=== PATIENT | female | born 1950 | race Caucasian/White ===

== ENCOUNTER → 2018-06-10 07:22 | Outpatient (CLI) | payer BC, SELFPAY ==
[2018-06-10 08:13] LABS: Add Manual Diff / Slide Review NO; Basophils Absolute Auto 100 /uL (0-100); Basophils Percent Auto 1.2 % (0-2); Eosinophils Absolute Auto 100 /uL (0-450); Eosinophils Percent Auto 1.5 % (2-4); Hematocrit 43.8 % (36-46); Hemoglobin 14.4 g/dL (12.0-16.0); Lymphocytes Absolute Auto 2600 /uL (1100-4500); Lymphocytes Percent Auto 51.6 % (25-40); Mean Corpuscular Hemoglobin 29.3 PG (26-34); Mean Corpuscular Volume 88.7 fL (80-100); Monocytes Absolute Auto 600 /uL (0-900); Monocytes Percent Auto 12.2 % (3-14); Neutrophils Absolute Auto 1700 /uL (1500-7000); Neutrophils Percent Auto 33.5 % (50-75); Platelet Count 235 X10^3/uL (150-400); Red Blood Cell Count 4.93 X10^6/uL (4.0-5.2); Red Cell Distribution Width 13.1 % (11.6-14.8)
[2018-06-10 08:33] LABS: Alanine Aminotransferase 18 IU/L (9-52); Albumin Globulin Ratio 1.5 (1.0-2.8); Alkaline Phosphatase 74 U/L (38-126); Aspartate Aminotransferase 24 IU/L (14-36); BUN Creatinine Ratio 17.5 (6-22); Bilirubin Total 0.5 mg/dL (0.2-1.3); Blood Urea Nitrogen 14 mg/dL (7-17); Calcium 8.9 mg/dL (8.4-10.2); Carbon Dioxide 31 mmol/L (22-32); Chloride 100 mmol/L (98-107); Cholesterol 214 mg/dL (140-199); Estimated Glomerular Filt Rate > 60.0 mL/min (>60); Globulin 2.6 g/dL (1.7-4.1); Glucose 86 mg/dL (80-110); HDL Cholesterol 58 mg/dL (40-60); HEMOLYSIS < 15 (0-50); LDL Cholesterol Calculated 145 mg/dL (<100); Potassium 3.7 mmol/L (3.4-5.1); Sodium 139 mmol/L (137-145); Total Protein 6.6 g/dL (6.3-8.2); Triglycerides 56 mg/dL (35-150)
== END ==
PROVIDERS: Visit Provider Naturopath
DX: Z00.00 Encounter for general adult medical examination without abnormal findings (principal)
CPT/HCPCS: 36415; 80053; 80061; 85025

== ENCOUNTER → 2018-10-12 14:15 | Outpatient (CLI) | payer BC, SELFPAY ==
[2018-10-12 15:12] LABS: Add Manual Diff / Slide Review NO; Basophils Absolute Auto 100 /uL (0-100); Basophils Percent Auto 0.9 % (0-2); Eosinophils Absolute Auto 100 /uL (0-450); Eosinophils Percent Auto 1.2 % (2-4); Hemoglobin 14.2 g/dL (12.0-16.0); Lymphocytes Absolute Auto 2400 /uL (1100-4500); Lymphocytes Percent Auto 36.9 % (25-40); Mean Corpuscular HGB Conc 33.7 % (30-36); Mean Corpuscular Hemoglobin 29.7 PG (26-34); Mean Corpuscular Volume 88.1 fL (80-100); Monocytes Absolute Auto 500 /uL (0-900); Monocytes Percent Auto 8.2 % (3-14); Neutrophils Absolute Auto 3400 /uL (1500-7000); Neutrophils Percent Auto 52.8 % (50-75); Platelet Count 229 X10^3/uL (150-400); Red Blood Cell Count 4.77 X10^6/uL (4.0-5.2); Red Cell Distribution Width 13.3 % (11.6-14.8); White Blood Cell Count 6.5 X10^3/uL (4.5-11.0)
[2018-10-12 15:51] LABS: Free T3, Triiodothyronine Free 3.39 pg/mL (2.77-5.27); Free T4, Direct Thyroxine 1.17 ng/dL (0.78-2.19)
[2018-10-12 16:05] LABS: Thyroid Stimulating Hormone 1.52 uIU/mL (0.47-4.68)
[2018-11-03 12:56] LABS: Thyroid Peroxidase Antibodies < 1
[2018-11-03 12:57] LABS: Anti Thyroglobulin Antibody < 1
== END ==
PROVIDERS: Visit Provider Naturopath
DX: R42 Dizziness and giddiness (principal); L65.9 Nonscarring hair loss, unspecified; D70.9 Neutropenia, unspecified; R53.83 Other fatigue
CPT/HCPCS: 36415; 84439; 84443; 84481; 85025; 86376; 86800

== ENCOUNTER → 2018-12-13 07:51 | Outpatient (CLI) | payer BC, SELFPAY ==
--- NOTE | 2018-12-13 | DI.MG.S_ITS ---
BILATERAL DIGITAL SCREENING MAMMOGRAM 3D/2D WITH CAD: 12/13/2018 CLINICAL: Routine screening. Comparison is made to exams dated: 06/12/2017 mammogram, 01/29/2015 mammogram, and 01/07/2012 mammogram - [facility]. The tissue of both breasts is heterogeneously dense. This may lower the sensitivity of mammography. Current study was also evaluated with a Computer Aided Detection (CAD) system. There is a fine calcification in the right breast at 6 o'clock anterior depth. This is more prominent. No other significant masses, calcifications, or other findings are seen in either breast. IMPRESSION: INCOMPLETE: NEEDS ADDITIONAL IMAGING EVALUATION The fine calcification in the right breast is indeterminate. Lateral magnification, spot magnification, and additional views are recommended. This exam was interpreted at Station ID: [id number]. NOTE: For mammograms, a report in lay terms will be sent to the patient. Approximately 15% of breast malignancies will not be visualized mammographically. In the management of a palpable breast mass, a negative mammogram must not discourage biopsy of a clinically suspicious lesion. Electronically Signed By: Naomi he/araceli:12/13/2018 09:21:13 letter sent: Additional Imaging Needed ACR BI-RADS Category 0: Incomplete 3340F
== END ==
PROVIDERS: PCP Naturopath; Visit Provider Naturopath
DX: Z12.31 Encounter for screening mammogram for malignant neoplasm of breast (principal)
CPT/HCPCS: 77063; 77067

== ENCOUNTER → 2019-01-05 13:33 | Outpatient (CLI) | payer BC, SELFPAY ==
--- NOTE | 2019-01-05 | DI.MG.S_ITS ---
UNILATERAL RIGHT DIGITAL DIAGNOSTIC MAMMOGRAM 3D/2D WITH ADDITIONAL VIEWS: 01/05/2019 CLINICAL: Additional evaluation requested from prior study. Comparison is made to exams dated: 12/13/2018 mammogram, 06/12/2017 mammogram, and 01/29/2015 mammogram - [facility]. The tissue of right breast is heterogeneously dense. This may lower the sensitivity of mammography. There are benign calcifications in the right breast that are not significantly changed. The previously described fine calcification in the right breast at 6 o'clock anterior depth is no longer seen or reproducible despite several attempts. Adjacent benign calcifications are stable. This likely represented pseudocalcifications on comparison mammogram. No other significant masses or calcifications are seen in the breast. IMPRESSION: There is no mammographic evidence of malignancy. A 1 year screening mammogram is recommended. This exam was interpreted at Station ID: [id number]. NOTE: For mammograms, a report in lay terms will be sent to the patient. Approximately 15% of breast malignancies will not be visualized mammographically. In the management of a palpable breast mass, a negative mammogram must not discourage biopsy of a clinically suspicious lesion. Electronically Signed By: Christiano Rodriguez M.D. aty/:01/05/2019 14:28:57 letter sent: Normal Exam ACR BI-RADS Category 2: Benign Finding(s) 3342F
== END ==
PROVIDERS: PCP Physician Assistant; Visit Provider Naturopath
DX: R92.8 Other abnormal and inconclusive findings on diagnostic imaging of breast (principal)
CPT/HCPCS: 77065; G0279

== ENCOUNTER 2019-04-07 12:35 | Day surgery (SDC) | payer MEDICARE, OTHER, BC, SELFPAY ==
[2019-04-07] VITALS (9 sets, daily range): BP systolic 103–129; BP diastolic 56–69; PULSE 51–74; RESP 10–17; TEMP 36.1–36.6; O2SAT 55–100; BMI 22.2
[2019-04-07] MEDS: SODIUM CHLORIDE 0.9% 1,000 ML 200 ML IV (12:58)
--- NOTE | 2019-04-07 13:52 | PM.HP.1 ---
History of Present Illness History of Present Illness Date Patient Seen: 04/07/19 Time Patient Seen: 13:52 Chief complaint: 18626 SCREENING COLONOSCOPY Narrative: Patient presents for colorectal screening. They had a previous colonoscopy which was significant for an adenomatous polyp removed 5 years ago. No personal or family history of colon cancer. On further history denies any recent gastrointestinal symptoms. No nausea, vomiting, abdominal pain, loss of appetite, unexplained weight loss, change in bowel habits, diarrhea, constipation, melena, hematochezia, or bright red blood per rectum. Patient History Medical History Allergies (Chronic) Anxiety (Chronic) Cataracts, bilateral (Chronic ~2016) Chicken pox (Resolved) Depression (Chronic) Endometriosis (Inactive ~1979) Epiretinal membrane (Chronic ~2009) Foot pain (Chronic) Fractures (Resolved) GERD (gastroesophageal reflux disease) (Chronic ~2003) Hemorrhoid (Inactive ~1981) Herpes (Inactive ~1996) Measles (Resolved) Osteopenia (Chronic) Recurrent sinusitis (Chronic) Tendonitis (Chronic) Surgical History Anesthesia (Resolved) Leg fracture, right (Resolved ~2004) Family & Social History Family History Father Hypertension Stroke Mother Stroke Ulcerative colitis Sister Osteoporosis Grandfather History of heart disease Grandfather Aneurysm Social History: household members spouse Tobacco & Substance use: Smoking Status Never smoker alcohol intake current Meds Home Medications and Allergies Home Medications Medication Instructions Recorded Confirmed Type cholecalciferol (vitamin D3) 25 3,000 unit PO DAILY cap 01/03/19 04/07/19 History mcg (1,000 unit) capsule multivitamin 1 cap PO DAILY 01/03/19 04/07/19 History pneumoc 13-sally conj-dip cr(PF) 0.5 0.5 ml IM ONCE #0.5 ml 01/03/19 04/07/19 Rx mL IM syringe Allergies Allergy/AdvReac Type Severity Reaction Status Date / Time tetracycline [TETRACYCLINE] Allergy Intermediate Hives and Unverified 01/03/19 10:02 swelling Review of Systems Review of Systems Narrative: A 10 point review of systems is negative except as noted in the HPI Exam Vital Signs (past 8 hours): - 04/07/19 13:08 Temperature 97.8 F Pulse Rate 74 Respiratory Rate 16 Pulse Oximetry 98 Oxygen Delivery Method Room Air Narrative Exam Narrative: General-no acute distress, well nourished HEENT-moist mucous membranes, no scleral icterus Neck-supple, no lymphadenopathy Chest- non labored respirations, clear to auscultation bilaterally Cardiac-regular rate no peripheral edema Abdomen-soft, nontender, non distended Extremities-warm, well perfused Neurological-alert and oriented, no focal deficits Assessment & Plan Assessment and plan (1) Screening for colon cancer: Current visit: Yes Status: Acute Assessment & Plan narrative: The patient requires colorectal screening and colonoscopy is recommended. Technical details were discussed. Risks, benefits, alternatives explained. Risks including but not limited to myocardial infarction, aspiration, bleeding, pain, missed lesion, incomplete examination, need for further radiographic studies, colonic perforation, and need for major abdominal surgery were discussed. All questions were answered to their satisfaction, and they are in agreement with this plan.
[2019-04-07] MEDS: fentaNYL 250 MCG/5 ML INJ IV (14:00)
[2019-04-07] MEDS: MIDAZOLAM 5 MG/ML VIAL 1 MG IV (14:00)
--- NOTE | 2019-04-07 14:24 | PM.OP.ENDO ---
Operative Date/Time/Diagnoses Date of procedure: 04/07/19 Time of procedure: 14:25 Pre-op diagnosis: Screening colonoscopy Post-op diagnosis: same Procedure & Clinicians Study performed: Colonoscopy Same procedure as scheduled: Yes Indications: 68-year-old female last colonoscopy 5 years ago demonstrated adenomatous polyp which was resected presents for routine screening. Surgeon: Darrian Martin Procedure Notes SCOAP/Timeout: Performed Procedure in detail: Patient placed in left lateral decubitus position. Time out was performed. Procedural sedation was administered with Versed and Fentanyl. A rectal exam demonstrated no external hemorrhoids no internal masses. Colonoscopy scope was placed into the rectum and advanced through the colon to the cecum. The ileocecal valve was identified. The scope was then slowly withdrawn examining colon thoroughly in all directions. The colonoscopy was notable for the following 1. Sigmoid diverticulosis 2. Quality of prep excellent 3. No masses polyps Scope withdrawal time: 7 Sedation minutes: 20 Findings: diverticulosis Specimen(s): none sent Complications: none Impression: Diverticulosis Post-procedure Recommendations: Colonscopy in 10 years Disposition: same day surgery
== END 2019-04-07 15:50 | disposition home or self-care (01) ==
PROVIDERS: PCP Physician Assistant; Referring Provider Physician Assistant; Visit Provider Surgery
PROC: 0DJD8ZZ Inspection of Lower Intestinal Tract, Via Natural or Artificial Opening Endoscopic (ICD-10-PCS; CPT 45378; principal; 2019-04-07 13:45)
DX: Z12.11 Encounter for screening for malignant neoplasm of colon (principal); K57.30 Diverticulosis of large intestine without perforation or abscess without bleeding; Z86.010 Personal history of colon polyps
CPT/HCPCS: G0105; 99152; J2250; J3010

== ENCOUNTER 2019-09-21 14:24 | Emergency (ER) | payer MEDICARE, OTHER, SELFPAY ==
[2019-09-21] VITALS (10 sets, daily range): BP systolic 118–141; BP diastolic 61–72; PULSE 59–75; RESP 16–39; TEMP 36.5; O2SAT 95–100
--- NOTE | 2019-09-21 17:11 | PC.NURSE ---
Patient states has been suffering from feeling of fulllness in head and dizziness over the last year. Is supposed to see a neurologist in November but was counseled by PCP to come to ED if symptoms worsen. Patient states over the last 3 days feeling of fullness has increased and having increasing difficulty walking because of dizziness. Denies any falls or numbness to extremities. Facial expressions symmetrical and equal strength in extremities.
--- NOTE | 2019-09-21 17:39 | ED.NEUROSD ---
HPI - Neuro Symptoms/Deficit <Tony Haque MD - Last Filed: 09/22/19 07:47> General Chief Complaint: Neuro Symptoms/Deficit Stated Complaint: equalibrium is off Time Seen by Provider: 09/21/19 16:37 Source: patient Mode of arrival: Ambulatory History of Present Illness HPI Narrative: Patient here for off and on lightheadedness with head pressure not headache for the past 1 year. 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 Did Jackie maneuvers without resolved. Patient then referred to eye doctor and could not find source of the problem. Patient was able to obtain a family doctor this year and has referral to Neurology December 21. Last episode feeling off balance 1 or 2 months ago but has persistent head band tension discomfort. Again not headache. No numbness tingling or weakness. No slurred speech or facial droop. No sinus pressure or sinus pain. Has not tried meclizine or any medical/medication therapy. At this time just feels like a band around her head, no pain On Anticoagulants: No Related Data Home Medications Medication Instructions Recorded Confirmed cholecalciferol (vitamin D3) 25 3,000 unit PO DAILY cap 01/03/19 04/07/19 mcg (1,000 unit) capsule multivitamin 1 cap PO DAILY 01/03/19 04/07/19 Previous Rx's Medication Instructions Recorded pneumoc 13-sally conj-dip cr(PF) 0.5 0.5 ml IM ONCE #0.5 ml 01/03/19 mL IM syringe Allergies Allergy/AdvReac Type Severity Reaction Status Date / Time tetracycline [TETRACYCLINE] Allergy Intermediate Hives and Unverified 01/03/19 10:02 swelling Review of Systems <Tony Haque MD - Last Filed: 09/22/19 07:47> Review of Systems Narrative: GENERAL: Denies chills, fatigue, malaise, fever, sweats. HEENT: Denies sinus pain, ear pain, sore throat, difficulty swallowing, dizziness. RESPIRATORY: Denies dyspnea, cough, wheezing, hemoptysis, sputum. CARDIOVASCULAR: Denies chest pain, palpitations, orthopnea, edema, GASTROINTESTINAL: Denies nausea, vomiting, abdominal pain, diarrhea, constipation, melena. : Denies dysuria, frequency, incontinence, hematuria, urinary retention. MUSCULOSKELETAL: denies weakness, joint pain, or bony pain SKIN: Denies rash, skin lesions, or other NEUROLOGIC: Denies weakness, headache, numbness, change in speech, confusion, seizures, incoordination. Complains of lightheadedness PSYCHIATRIC: No concerning psychosocial issues. ROS Unobtainable: All systems reviewed & are unremarkable except as noted in HPI and below Patient History <Tony Haque MD - Last Filed: 09/22/19 07:47> Medical History Allergies (Chronic) Anxiety (Chronic) Cataracts, bilateral (Chronic ~2016) Chicken pox (Resolved) Depression (Chronic) Endometriosis (Inactive ~1979) Epiretinal membrane (Chronic ~2009) Foot pain (Chronic) Fractures (Resolved) GERD (gastroesophageal reflux disease) (Chronic ~2003) Hemorrhoid (Inactive ~1981) Herpes (Inactive ~1996) Measles (Resolved) Osteopenia (Chronic) Recurrent sinusitis (Chronic) Tendonitis (Chronic) Surgical History Anesthesia (Resolved) Leg fracture, right (Resolved ~2004) Family History Father Hypertension Stroke Mother Stroke Ulcerative colitis Sister Osteoporosis Grandfather History of heart disease Grandfather Aneurysm Social History household members: spouse Smoking Status: Never smoker second hand exposure: No alcohol intake: current substance use type: marijuana (occasionally I have some edibles, but I don't smoke it.) Smoking Status: Never smoker alcohol intake frequency: 0-2 drinks per day Alcohol type: beer Substance Use Type: marijuana Exam <Tony Haque MD - Last Filed: 09/22/19 07:47> Narrative Exam Narrative: GENERAL: patient appears stated age. Well-nourished, well-developed patient, in no distress, not toxic HEAD: Atraumatic. Normocephalic. EYES: Pupils equal round and reactive. Extraocular motions intact. No scleral icterus. No injection or drainage. No nystagmus ENT: Nose without bleeding, purulent drainage. Throat without erythema, tonsillar hypertrophy or exudate. Airway patent. NECK: Trachea midline. Non tender CARDIOVASCULAR: Regular rate and rhythm without murmurs, gallops, or rubs. RESPIRATORY: Clear to auscultation. Breath sounds equal bilaterally. No wheezes, rales, or rhonchi. GASTROINTESTINAL: Abdomen soft, non-tender, nondistended. EXTREMITIES: No edema or joint tenderness. BACK: Nontender without deformity or crepitance. No flank tenderness. NEURO: AOx3. Clear speech no facial droop steady self gait no foot drop. Light touch intact to bilateral face hands and feet. Strong equal batch mixer operator bilaterally and ankle flexion hip flexion and knee flexion. Strong bilateral patellar reflexes. Steady Romberg, negative pronator drift. Steady nose to finger bilaterally SKIN: No rash or erythema of visible areas PSYCH: Not anxious, is cooperative Initial Vital Signs Initial Vital Signs: Vital Signs Temperature 97.7 F 09/21/19 14:29 Pulse Rate 74 09/21/19 14:29 Respiratory Rate 16 09/21/19 14:29 Blood Pressure 118/61 09/21/19 14:29 Pulse Oximetry 100 09/21/19 14:29 <Leslie Neri MD - Last Filed: 09/22/19 02:50> Initial Vital Signs Initial Vital Signs: Vital Signs Temperature 97.7 F 09/21/19 14:29 Pulse Rate 74 09/21/19 14:29 Respiratory Rate 16 09/21/19 14:29 Blood Pressure 118/61 09/21/19 14:29 Pulse Oximetry 100 09/21/19 14:29 Scores <Tony Haque MD - Last Filed: 09/22/19 07:47> NIH Stroke Scale Level of Conciousness: Alert, keenly responsive Ask month/age: Answers both questions correctly. Open/close eyes, close hand: Performs both tasks correctly Best gaze horizontal: Normal Visual kumar: No visual loss Facial palsy: Normal symetrical movement Left arm drift: No drift for full 10 sec Right arm drift: No drift for full 10 sec Left leg drift: No drift for full 10 sec Right leg drift: No drift for full 10 sec Limb ataxia: Absent Sensory on face/arms/legs: Normal, no sensory loss Best language: No aphasia, normal Dysarthria: Normal Extinction or inattention: No abnormality Total NIH Stroke scale score: 0 Course <Tony Haque MD - Last Filed: 09/22/19 07:47> Orders Ordered: Discontinued Medications Sodium Chloride (Normal Saline 0.9%) 1,000 mls @ 150 mls/hr IV CONT RAÚL Last Infusion: 09/21/19 22:08 Dose: 0 mls/hr Documented by: Admin: 09/21/19 17:58 Dose: 150 mls/hr Documented by: MEGAN Reevaluation(s) Reevaluation #1: No new complaints at this time. Awaiting for central sterilization technician to call back if he can do the MRI tonight Time: 19:05 Additional Reevaluation(s): Time 7:[address] signed out to dr neri...mri results pending for dispo Vital Signs Vital signs: Vital Signs - 8 hr 09/21/19 19:00 09/21/19 19:30 09/21/19 21:01 Pulse Rate 61 59 L 61 Respiratory Rate 20 20 Blood Pressure 137/72 Pulse Oximetry 100 100 95 09/21/19 21:02 09/21/19 21:30 09/21/19 22:00 Pulse Rate 61 69 65 Respiratory Rate Blood Pressure 141/65 H 138/65 121/63 Pulse Oximetry 100 100 98 <Leslie Neri MD - Last Filed: 09/22/19 02:50> Orders Ordered: Discontinued Medications Sodium Chloride (Normal Saline 0.9%) 1,000 mls @ 150 mls/hr IV CONT RAÚL Last Infusion: 09/21/19 22:08 Dose: 0 mls/hr Documented by: Admin: 09/21/19 17:58 Dose: 150 mls/hr Documented by: MEGAN Vital Signs Vital signs: Vital Signs - 8 hr 09/21/19 19:00 09/21/19 19:30 09/21/19 21:01 Pulse Rate 61 59 L 61 Respiratory Rate 20 20 Blood Pressure 137/72 Pulse Oximetry 100 100 95 09/21/19 21:02 09/21/19 21:30 09/21/19 22:00 Pulse Rate 61 69 65 Respiratory Rate Blood Pressure 141/65 H 138/65 121/63 Pulse Oximetry 100 100 98 MDM - Neuro Symptoms/Deficit <Tony Haque MD - Last Filed: 09/22/19 07:47> Differential Diagnosis Differential diagnosis: Likely transient cerebral ischemia and other (Vertigo/labyrinthitis) Lab Data Attestation: I reviewed the patient's lab results. Result diagrams: 09/21/19 18:11 09/21/19 18:11 Labs: Lab Results 09/21/19 09/21/19 Range/Units 18:11 18:11 WBC 5.6 (4.5-11.0) X10^3/uL RBC 4.88 (4.0-5.2) X10^6/uL Hgb 14.5 (12.0-16.0) g/dL Hct 42.7 (36-46) % MCV 87.7 (80-100) fL MCH 29.7 (26-34) PG MCHC 33.9 (30-36) % RDW 13.4 (11.6-14.8) % Plt Count 245 (150-400) X10^3/uL Neut % (Auto) 43.6 L (50-75) % Lymph % (Auto) 43.1 H (25-40) % [place] % (Auto) 10.8 (3-14) % Eos % (Auto) 1.7 L (2-4) % Baso % (Auto) 0.8 (0-2) % Neut # (Auto) 2400 (5242-9518) /uL Lymph # (Auto) 2400 (8085-6726) /uL [place] # (Auto) 600 (0-900) /uL Eos # (Auto) 100 (0-450) /uL Baso # (Auto) 0 (0-100) /uL Sodium 137 (137-145) mmol/L Potassium 3.8 (3.4-5.1) mmol/L Chloride 101 (98-107) mmol/L Carbon Dioxide 31 (22-32) mmol/L BUN 17 (7-17) mg/dL Creatinine 0.67 (0.52-1.04) mg/dL Estimated GFR > 60.0 (>60) mL/min BUN/Creatinine Ratio 25.4 H (6-22) Glucose 82 (80-110) mg/dL Calcium 9.1 (8.4-10.2) mg/dL Total Bilirubin 0.5 (0.2-1.3) mg/dL AST 28 (14-36) IU/L ALT 15 (<35) IU/L Alkaline Phosphatase 87 (38-126) U/L Troponin I < 0.012 (0.01-0.034) ng/mL Total Protein 6.8 (6.3-8.2) g/dL Albumin 4.2 (3.5-5.0) g/dL Globulin 2.6 (1.7-4.1) g/dL Albumin/Globulin Ratio 1.6 (1.0-2.8) Imaging Data CT scan - head: Radiologist's Impression: [address] [address] [address] Scan Report Signed Patient: Traci Humphrey EMR#: [id number] : 2Acct:[id number] Age/Sex: 69 / FDate of Service: 09/21/19 Loc: ED Accession Number: [id number] Procedure: CT head/brain wo con Ordering Provider: Tony Haque MD PROCEDURE: CT HEAD/BRAIN WO CON INDICATIONS: Dizziness TECHNIQUE: Noncontrast 4.5 mm thick angled axial sections acquired from the foramen magnum to the vertex, with coronal and sagittal reformats. For radiation dose reduction, the following was used: automated exposure control, adjustment of mA and/or kV according to patient size. COMPARISON: None. FINDINGS: Image quality: Excellent. CSF spaces: Basal cisterns are patent. No extra-axial fluid collections. The ventricles are symmetric in size and shape. Brain: No intracranial bleeds or masses. There is cerebral volume loss for age, with resultant ventricular and sulcal prominence. There are periventricular and deep white matter chronic small vessel ischemic changes. There is intracranial internal carotid artery atherosclerosis. Skull and face: Calvarium and visualized facial bones appear intact, without suspicious lesions. Sinuses: Visualized sinuses and mastoids are clear. IMPRESSION: Normal noncontrast head CT study for age. If it would be helpful for clinical management decision making in this patient with a presenting history of dizziness, please consider a dedicated IAC protocol by brain MRI (without and with contrast) for further evaluation (assuming that there is no contraindication). Dictated by: Frederick Cuevas M.D. on 09/21/2019 at 17:07 Approved by: Frederick Cuevas M.D. on 09/21/2019 at 17:08 mri brain: Radiologist's Impression: [address] [address] Magnetic Resonance Report Signed Patient: Traci Humphrey EMR#: [id number] : 2Acct:[id number] Age/Sex: 69 / FDate of Service: 09/21/19 Loc: ED Accession Number: [id number] Procedure: MR brain (IAC) wwo con Ordering Provider: Tony Haque MD PROCEDURE: MR BRAIN (IAC) WWO CON INDICATIONS: Dizziness TECHNIQUE: Noncontrast sagittal T1 spin echo, axial FLAIR, axial gradient echo, axial diffusion and ADC through the brain. Axial thin-slice 3D CISS, coronal TruFISP, axial T1 spin echo with fat saturation through the internal auditory canals. After the administration of contrast, thin slice axial and coronal T1 spin echo with fat saturation through the internal auditory canals, and axial T1 spin echo with fat saturation through the brain. COMPARISON: None. FINDINGS: Image quality: Excellent. Cerebellopontine angles: No cerebellopontine angle masses. Inner ear structures appear normally formed. No suspicious enhancement in the internal auditory canal or along the course of the 7th cranial nerve. CSF spaces: Ventricles are normal in size and shape. No extra-axial fluid collections. Basal cisterns are patent. Brain: No intracranial bleeds or mass effects. Mcgarry-white matter interface is intact. No abnormal intracranial enhancement. Diffusion weighted images demonstrate no acute ischemic insults. Brainstem appears normal. Normal intravascular flow voids are present. Skull and face: Calvarial marrow signal is normal. Orbits appear normal. Sinuses: Sinuses and mastoids are clear. IMPRESSION: 1. Normal MRI of the brain. 2. Normal internal auditory canals and cerebellopontine angles. Dictated by: Naomi Hinkle M.D. on 09/21/2019 at 21:50 Approved by: Naomi Hinkle M.D. on 09/21/2019 at 21:54 ECG Data Attestation: I personally reviewed and interpreted this ECG as follows: Interpretation: Normal sinus rhythm ventricular rate [address] elevation or depression MDM Narrative Medical decision making narrative: Ongoing symptoms for the past year. Has appointment with neurology set up. Has been evaluated by ENT already. Appropriate for discharge home <Leslie Neri MD - Last Filed: 09/22/19 02:50> Medical Records Attestation: I reviewed the patient's medical records. Lab Data Attestation: I reviewed the patient's lab results. Labs: Lab Results 09/21/19 09/21/19 Range/Units 18:11 18:11 WBC 5.6 (4.5-11.0) X10^3/uL RBC 4.88 (4.0-5.2) X10^6/uL Hgb 14.5 (12.0-16.0) g/dL Hct 42.7 (36-46) % MCV 87.7 (80-100) fL MCH 29.7 (26-34) PG MCHC 33.9 (30-36) % RDW 13.4 (11.6-14.8) % Plt Count 245 (150-400) X10^3/uL Neut % (Auto) 43.6 L (50-75) % Lymph % (Auto) 43.1 H (25-40) % [place] % (Auto) 10.8 (3-14) % Eos % (Auto) 1.7 L (2-4) % Baso % (Auto) 0.8 (0-2) % Neut # (Auto) 2400 (5977-6681) /uL Lymph # (Auto) 2400 (8356-2767) /uL [place] # (Auto) 600 (0-900) /uL Eos # (Auto) 100 (0-450) /uL Baso # (Auto) 0 (0-100) /uL Sodium 137 (137-145) mmol/L Potassium 3.8 (3.4-5.1) mmol/L Chloride 101 (98-107) mmol/L Carbon Dioxide 31 (22-32) mmol/L BUN 17 (7-17) mg/dL Creatinine 0.67 (0.52-1.04) mg/dL Estimated GFR > 60.0 (>60) mL/min BUN/Creatinine Ratio 25.4 H (6-22) Glucose 82 (80-110) mg/dL Calcium 9.1 (8.4-10.2) mg/dL Total Bilirubin 0.5 (0.2-1.3) mg/dL AST 28 (14-36) IU/L ALT 15 (<35) IU/L Alkaline Phosphatase 87 (38-126) U/L Troponin I < 0.012 (0.01-0.034) ng/mL Total Protein 6.8 (6.3-8.2) g/dL Albumin 4.2 (3.5-5.0) g/dL Globulin 2.6 (1.7-4.1) g/dL Albumin/Globulin Ratio 1.6 (1.0-2.8) Imaging Data Brain MRI: Radiologist's Impression: IMPRESSION: 1. Normal MRI of the brain. 2. Normal internal auditory canals and cerebellopontine angles. Dictated by: Naomi Hinkle M.D. on 09/21/2019 at 21:50 MDM Narrative Medical decision making narrative: Patient presents for worsening dizziness. Thorough workup in the emergency room has revealed no evidence of infection, mass, tumor, stroke, cardiac or rate related issues. Patient is safe for home discharge. Discharge Plan Departure Patient Disposition: Home Clinical Impression: Dizziness Discharge Date/Time: 09/21/19 22:08 Instructions: DI for Dizziness-Nonvertigo Activity Restrictions/Additional Instructions: Return immediately if worse or if any questions or concerns. See neurologist as scheduled. Call family physician and Neurology office for possible earlier appointment. See family doctor this week for recheck Prescriptions: No Action multivitamin Capsule 1 cap PO DAILY RF: 0 cholecalciferol (vitamin D3) 1,000 unit capsule 3,000 unit PO DAILY RF: 0 Prevnar 13 (PF) 0.5 mL syringe 0.5 ml IM ONCE Qty: 0.5 RF: 0 Referrals: Melanie Zeng MD [Primary Care Provider] -
[2019-09-21] MEDS: SODIUM CHLORIDE 0.9% 1,000 ML 150 ML IV (17:58)
[2019-09-21 18:27] LABS: Add Manual Diff / Slide Review NO; Basophils Absolute Auto 0 /uL (0-100); Basophils Percent Auto 0.8 % (0-2); Eosinophils Absolute Auto 100 /uL (0-450); Eosinophils Percent Auto 1.7 % (2-4); Hematocrit 42.7 % (36-46); Hemoglobin 14.5 g/dL (12.0-16.0); Lymphocytes Absolute Auto 2400 /uL (1100-4500); Lymphocytes Percent Auto 43.1 % (25-40); Mean Corpuscular HGB Conc 33.9 % (30-36); Mean Corpuscular Hemoglobin 29.7 PG (26-34); Mean Corpuscular Volume 87.7 fL (80-100); Monocytes Absolute Auto 600 /uL (0-900); Monocytes Percent Auto 10.8 % (3-14); Neutrophils Absolute Auto 2400 /uL (1500-7000); Neutrophils Percent Auto 43.6 % (50-75); Platelet Count 245 X10^3/uL (150-400); Red Blood Cell Count 4.88 X10^6/uL (4.0-5.2); Red Cell Distribution Width 13.4 % (11.6-14.8); White Blood Cell Count 5.6 X10^3/uL (4.5-11.0)
[2019-09-21 18:38] LABS: Alanine Aminotransferase 15 IU/L (<35); Albumin 4.2 g/dL (3.5-5.0); Albumin Globulin Ratio 1.6 (1.0-2.8); Alkaline Phosphatase 87 U/L (38-126); Aspartate Aminotransferase 28 IU/L (14-36); BUN Creatinine Ratio 25.4 (6-22); Bilirubin Total 0.5 mg/dL (0.2-1.3); Blood Urea Nitrogen 17 mg/dL (7-17); Calcium 9.1 mg/dL (8.4-10.2); Carbon Dioxide 31 mmol/L (22-32); Chloride 101 mmol/L (98-107); Estimated Glomerular Filt Rate > 60.0 mL/min (>60); Globulin 2.6 g/dL (1.7-4.1); Glucose 82 mg/dL (80-110); HEMOLYSIS < 15 (0-50); Potassium 3.8 mmol/L (3.4-5.1); Sodium 137 mmol/L (137-145); Total Protein 6.8 g/dL (6.3-8.2)
[2019-09-21 18:48] LABS: Troponin I < 0.012 ng/mL (0.01-0.034)
--- NOTE | 2019-09-21 19:53 | DI.MRI.S_ITS ---
PROCEDURE: MR BRAIN (IAC) WWO CON INDICATIONS: Dizziness TECHNIQUE: Noncontrast sagittal T1 spin echo, axial FLAIR, axial gradient echo, axial diffusion and ADC through the brain. Axial thin-slice 3D CISS, coronal TruFISP, axial T1 spin echo with fat saturation through the internal auditory canals. After the administration of contrast, thin slice axial and coronal T1 spin echo with fat saturation through the internal auditory canals, and axial T1 spin echo with fat saturation through the brain. COMPARISON: None. FINDINGS: Image quality: Excellent. Cerebellopontine angles: No cerebellopontine angle masses. Inner ear structures appear normally formed. No suspicious enhancement in the internal auditory canal or along the course of the 7th cranial nerve. CSF spaces: Ventricles are normal in size and shape. No extra-axial fluid collections. Basal cisterns are patent. Brain: No intracranial bleeds or mass effects. Mcgarry-white matter interface is intact. No abnormal intracranial enhancement. Diffusion weighted images demonstrate no acute ischemic insults. Brainstem appears normal. Normal intravascular flow voids are present. Skull and face: Calvarial marrow signal is normal. Orbits appear normal. Sinuses: Sinuses and mastoids are clear. IMPRESSION: 1. Normal MRI of the brain. 2. Normal internal auditory canals and cerebellopontine angles. Dictated by: Naomi Hinkle M.D. on 09/21/2019 at 21:50 Approved by: Naomi Hinkle M.D. on 09/21/2019 at 21:54
== END 2019-09-21 22:08 | disposition home or self-care (01) ==
PROVIDERS: Emergency Provider Emergency Medicine; PCP Student in an Organized Health Care Education/Training Program; Referring Provider Student in an Organized Health Care Education/Training Program
DX: R42 Dizziness and giddiness (principal)
CPT/HCPCS: 36415; 70450; 70553; 80053; 84484; 85025; 93005; 96360; 96361; 99284; A9579

== ENCOUNTER → 2019-09-30 14:41 | Outpatient (CLI) | payer MEDICARE, OTHER, SELFPAY | PROVIDERS: PCP Student in an Organized Health Care Education/Training Program; Referring Provider Student in an Organized Health Care Education/Training Program; Visit Provider Student in an Organized Health Care Education/Training Program | DX: M81.0 Age-related osteoporosis without current pathological fracture (principal); Z78.0 Asymptomatic menopausal state; Z82.62 Family history of osteoporosis | CPT/HCPCS: 77080 ==

== ENCOUNTER → 2019-11-04 07:07 | Outpatient (CLI) | payer MEDICARE, OTHER, SELFPAY ==
[2019-11-04 08:40] LABS: Hemoglobin A1C% w Est Avg Glu 5.4 % (4.0-6.0)
[2019-11-04 09:06] LABS: Cholesterol 198 mg/dL (140-199); HDL Cholesterol 61 mg/dL (40-60); LDL Cholesterol Calculated 130 mg/dL (<100); Triglycerides 35 mg/dL (35-150)
[2019-11-04 09:14] LABS: Thyroid Stimulating Hormone 1.41 uIU/mL (0.47-4.68)
[2019-11-04 09:32] LABS: Cortisol AM (Before 10AM) 8.73 ug/dL (4.46-22.7)
== END ==
PROVIDERS: PCP Student in an Organized Health Care Education/Training Program; Referring Provider Nurse Practitioner; Visit Provider Nurse Practitioner
DX: I95.1 Orthostatic hypotension (principal); R00.1 Bradycardia, unspecified; R42 Dizziness and giddiness; R79.89 Other specified abnormal findings of blood chemistry
CPT/HCPCS: 36415; 80061; 82533; 83036; 84443

== ENCOUNTER → 2019-11-15 13:40 | Outpatient (CLI) | payer MEDICARE, OTHER, SELFPAY ==
--- NOTE | 2019-11-15 | DI.ECHO.S_ITS ---
[facility] +---------+ : : [address] : [place] : : : : [id number] : : : : Phone: [phone]+ Echocardiogram Report + + :Name: HUMAIRA BARRETO Study Date: 11/15/2019 Height: 68 in : :[facility] Weight: 150 lb : : Gender: Female BSA: 1.8 m2 : :: 1950 Age: 69 yrs BP: 137/73 mmHg: :Reason For Study: HYPOTENSION : :Ordering Physician: OSBALDO, : :CHAS SINCLAIR Performed By: Tracy Beebe : :Referring: CHAS ROBLERO : + + Interpretation Summary 1) Normal left ventricular thickness, size, wall motion and systolic function (EF 55-60%). 2) Normal right ventricular size and function. 3) No significant valvular abnormalities. 4) No prior Echo available for comparison. Procedure: A two-dimensional transthoracic echocardiogram with color flow and Doppler was performed. The study quality was technically adequate. There is no prior echocardiogram noted for this patient. The patient was in sinus rhythm with heart rates between 56-69 bpm during the exam. Left Ventricle: The left ventricle is normal in size and wall thickness. The ejection fraction is estimated to be 55-60%. Left ventricular systolic function is normal without focal wall motion abnormalities. Diastolic parameters suggest probable normal left ventricular diastolic function and normal filling pressures. Right Ventricle: The right ventricle is normal in size and function. Atria: The left atrial size is normal. Right atrial size is normal. Chiari network (normal variant) is noted. There is no Doppler evidence for an interatrial shunt. Mitral Valve: The mitral valve is normal in structure and function. There is trace mitral regurgitation. Aortic Valve: The aortic valve is trileaflet. The aortic valve opens well. There is no aortic valve stenosis. No aortic regurgitation is present. Tricuspid Valve: The tricuspid valve is normal in structure and function. Pulmonary artery pressures cannot be estimated because of the lack of a measurable TR jet velocity but the IVC suggests a CVP of around 3 mmHg. There is trace tricuspid regurgitation. Pulmonic Valve: The pulmonic valve is not well visualized. There is trace pulmonic regurgitation. Great Vessels: The aortic root is normal size. The dimensions of the ascending aorta are normal. The IVC is of normal diameter and collapses greater than 50% with a sniff. This suggests a low right atrial pressure of 3 mm Hg. Pericardium/ Pleura There is no pericardial effusion. There is no pleural effusion. MMode/2D Measurements & Calculations LVIDd: 5.1 cm LVOT diam: 2.0 cm LVIDs: 3.6 cm Ao root diam: 3.3 cm FS: 29.1 % asc Aorta Diam: 2.9 cm EPSS: 1.1 cm Ao Arch Diam (Prox Trans): 2.4 cm IVSd: 0.72 cm LVPWd: 0.72 cm LV meza. diameter/BSA (cm/m^2): 2.8 LV sys. diameter/BSA (cm/m^2): 2.0 LA A2 area: 18.6 cm2 RA long axis: 4.1 cm LA A4 area: 14.8 cm2 RA area: 12.4 cm2 LA length (vol): 4.0 cm RA vol: 32.0 ml LA vol: 58.4 ml RA : 17.7 ml/m2 LA vol index: 32.3 ml/m2 IVC diam: 1.1 cm RVD1 (basal): 3.1 cm TAPSE: 2.2 cm Doppler Measurements & Calculations Ao V2 max: 109.5 cm/sec LVOT Max Genaro: 68.4 cm/sec Ao V2 mean: 69.2 cm/sec LV V1 max P.9 mmHg Ao max P.8 mmHg LV V1 VTI: 15.4 cm Ao mean P.3 mmHg WILLOW(I,D): 1.8 cm2 Ao V2 VTI: 26.1 cm WILLOW(V,D): 1.9 cm2 sev ratio: 0.59 WILLOW indexed to BSA (cm^2/m^2): 0.99 MV E max genaro: 63.0 cm/sec PA V2 max: 66.7 cm/sec MV A max genaro: 77.8 cm/sec PA V2 mean: 40.4 cm/sec MV E/A: 0.81 PA mean P.81 mmHg Med Peak E' Genaro: 4.2 cm/sec PA pr(Accel): 1.9 mmHg E/E' med: 15.1 Lat Peak E' Genaro: 7.9 cm/sec E/E' lat: 7.9 E/e' average: 11.5 MV dec time: 0.18 sec SV(LVOT): 46.8 ml Reading Physician:04:10 PM
== END ==
PROVIDERS: PCP Student in an Organized Health Care Education/Training Program; Referring Provider Nurse Practitioner; Visit Provider Nurse Practitioner
DX: I95.1 Orthostatic hypotension (principal)
CPT/HCPCS: 93306

== ENCOUNTER → 2019-11-21 14:57 | Outpatient (CLI) | payer MEDICARE, OTHER, SELFPAY ==
--- NOTE | 2019-11-21 17:50 | DI.NM.S_ITS ---
DATE OF SERVICE: 11/21/2019 PROCEDURE PERFORMED: Non-nuclear exercise treadmill stress test without imaging. ORDERING PROVIDER: Dr. Noris Zepeda. INDICATIONS: The patient is a 69-year-old female with lightheadedness and chest discomfort. FINDINGS: 1. The patient was able to exercise for a total of 9 minutes 12 seconds on a standard Blayne protocol suggesting excellent exercise capacity with an ANDERS of -15%, achieving 10.1 METs. 2. She had a accentuated heart rate and blood pressure response to exercise with a resting heart rate of 74, BPM and a maximum heart rate of 170 BPM (112% of her predicted maximum). She had a mild hypertensive blood pressure response with a resting blood pressure of 110/88 and a maximum blood pressure of 210/100. 3. She had no chest discomfort or anginal symptoms. 4. Her resting ECG shows sinus rhythm with normal ST segments. With exercise, she developed mild. predominantly upsloping subtle ST depression that resolved by 1 minute of exercise and thus is likely normal. She had occasional PVCs, rarely and couplets, but no other complex ventricular ectopy. IMPRESSION: 1. Probable normal exercise treadmill study for ischemia. 2. Excellent exercise capacity without angina and a mild hypertensive blood pressure response and accelerated heart rate response to exercise. Traci Humphrey - KILEY/bandar/rizwana doc#: [id number]/job#: [id number] dd: 11/21/2019 16:37:00 dt: 11/21/2019 17:22:00 DICTATING /COPIES TO: Gaurang Yee MD; Noris Zepeda M.D. COPIES MNE: FRANCIA;
== END ==
PROVIDERS: PCP Student in an Organized Health Care Education/Training Program; Referring Provider Nurse Practitioner; Visit Provider Nurse Practitioner
DX: R07.89 Other chest pain (principal); R42 Dizziness and giddiness; E78.2 Mixed hyperlipidemia
CPT/HCPCS: 93017

== ENCOUNTER → 2020-01-06 16:00 | Outpatient (CLI) | payer MEDICARE, OTHER, SELFPAY ==
--- NOTE | 2020-01-06 16:03 | DI.MRI.S_ITS ---
PROCEDURE: MR CERVICAL SPINE WO/W CON INDICATIONS: CERVICALGIA TECHNIQUE: Noncontrast sagittal T1 spin echo and T2 fast spin echo, sagittal STIR, foraminal oblique sagittal T2 fast spin echo, axial gradient echo or T2 fast spin echo through the cervical spine. After the administration of contrast, axial and sagittal T1 spin echo with fat saturation through the cervical spine. COMPARISON: None. FINDINGS: Image quality: Degraded by patient motion artifact. Alignment and curvature: There is normal bony alignment. Marrow: Reactive endplate changes noted adjacent to the C4-C5, C5-C6 and C6-C7 discs. No suspicious enhancement. Spinal cord: Visualized spinal cord has normal size and signal. No cerebellar tonsillar herniation. No abnormal intramedullary enhancement. Paraspinous soft tissues: No paravertebral masses or suspicious enhancement. C2-3: Loss of disc signal and slight loss of disc height. No central stenosis. No neural foraminal narrowing. No neural compression. C3-4: Loss of disc signal. Minimal, diffuse disc bulge. No central stenosis. No neural foraminal narrowing. No neural compression. Mild bilateral facet hypertrophy. C4-5: Loss of disc signal and height. Mild to moderate diffuse disc bulge. Mild right and [id number] left facet hypertrophy. Mild left uncovertebral joint hypertrophy. Mild narrowing of the central canal. Mild right and moderate left neural foraminal narrowing. No neural compression. C5-6: Loss of disc signal and height. Moderate, diffuse disc bulge. Mild bilateral facet hypertrophy. Mild bilateral uncovertebral joint hypertrophy. Mild narrowing of the central canal. Mild bilateral neural foraminal narrowing. No neural compression. C6-7: Loss of disc signal and height. Mild to moderate diffuse disc bulge. Mild bilateral facet hypertrophy. Mild bilateral uncovertebral joint hypertrophy. Mild narrowing of the central canal. Moderate bilateral neural foraminal narrowing. No neural compression. C7-T1: Loss of disc signal. Mild, diffuse disc bulge. No central stenosis. Mild bilateral facet hypertrophy. Mild left neural foraminal narrowing. No neural compression. IMPRESSION: 1. Multilevel degenerative disc disease. 2. Multilevel facet and uncovertebral arthropathy. 3. No significant central canal narrowing. 4. No significant neural foraminal narrowing. 5. No neural compression. 6. No suspicious postcontrast enhancement. Dictated by: Joann Velázquez MD, PhD on 01/09/2020 at 12:51 Approved by: Joann Velázquez MD, PhD on 01/09/2020 at 13:02
== END ==
PROVIDERS: PCP Student in an Organized Health Care Education/Training Program; Referring Provider Psychiatry & Neurology Neurology; Visit Provider Psychiatry & Neurology Neurology
DX: M50.321 Other cervical disc degeneration at C4-C5 level (principal); M47.812 Spondylosis without myelopathy or radiculopathy, cervical region
CPT/HCPCS: 72156; A9579

== ENCOUNTER → 2020-05-02 11:31 | Outpatient (CLI) | payer MEDICARE, OTHER, SELFPAY ==
--- NOTE | 2020-05-02 11:33 | DI.MRI.S_ITS ---
PROCEDURE: MR SHOULDER LT WO CON INDICATIONS: Impingement syndrome of right shoulder TECHNIQUE: Noncontrast oblique coronal T2 fast spin echo with fat saturation, oblique sagittal T1 spin echo and T2 fast spin echo with fat saturation, axial T1 spin echo and T2 fast spin echo with fat saturation through the shoulder. COMPARISON: None. FINDINGS: Image quality: Excellent. Rotator cuff: Supraspinatus tendinopathy with partial thickness articular and bursal sided tear. No full-thickness defect is seen. Infraspinatus intact. Teres minor intact. Subscapularis tendon appears intact. No definite atrophy. There is fatty infiltration of the supraspinatus and infraspinatus muscles. Bones and bursae: No bone marrow contusions or fractures. Moderate acromioclavicular joint degeneration. Acromion demonstrates conventional anatomy, without an os acromiale. Moderate subacromial-subdeltoid bursitis. Capsule and soft tissues: Labrum: Ill-defined fraying of the posterosuperior labrum however no discrete intrasubstance fluid signal intensity. Chronic appearing sprain and thickening of the inferior glenohumeral ligament. Long head of the biceps tendon intact. Edema involving the mid deltoid with superficial fascial fluid The rotator interval appears normal, without fibrosis. Coracohumeral ligament intact. IMPRESSION: Supraspinatus tendinopathy with partial thickness articular and bursal sided tear. Moderate subacromial-subdeltoid bursitis Mid-deltoid acute strain/partial tear with adjacent fluid and edema. Sprain of the inferior glenohumeral ligament which could be chronic. Dictated by: Ash Roberts M.D. on 05/02/2020 at 12:28 Approved by: Ash Roberts M.D. on 05/02/2020 at 12:37
== END ==
PROVIDERS: PCP Student in an Organized Health Care Education/Training Program; Referring Provider Orthopaedic Surgery; Visit Provider Orthopaedic Surgery
DX: M75.112 Incomplete rotator cuff tear or rupture of left shoulder, not specified as traumatic; M19.012 Primary osteoarthritis, left shoulder; M75.52 Bursitis of left shoulder
CPT/HCPCS: 73221

== ENCOUNTER → 2020-09-03 07:47 | Outpatient (CLI) | payer MEDICARE, OTHER, SELFPAY ==
[2020-09-03 09:25] LABS: Add Manual Diff / Slide Review NO; Basophils Absolute Auto 100 /uL (0-100); Basophils Percent Auto 1.1 % (0-2); Eosinophils Absolute Auto 0 /uL (0-450); Eosinophils Percent Auto 0.8 % (2-4); Hematocrit 44.3 % (36-46); Hemoglobin 14.6 g/dL (12.0-16.0); Lymphocytes Absolute Auto 1900 /uL (1100-4500); Mean Corpuscular HGB Conc 33.1 % (30-36); Mean Corpuscular Hemoglobin 29.4 PG (26-34); Mean Corpuscular Volume 88.8 fL (80-100); Monocytes Absolute Auto 600 /uL (0-900); Monocytes Percent Auto 12.7 % (3-14); Neutrophils Absolute Auto 2000 /uL (1500-7000); Neutrophils Percent Auto 44.4 % (50-75); Platelet Count 211 X10^3/uL (150-400); Red Blood Cell Count 4.99 X10^6/uL (4.0-5.2); Red Cell Distribution Width 13.7 % (11.6-14.8); White Blood Cell Count 4.6 X10^3/uL (4.5-11.0)
[2020-09-03 09:47] LABS: Hemoglobin A1C% w Est Avg Glu 5.2 % (4.0-6.0)
[2020-09-03 10:00] LABS: BUN Creatinine Ratio 17.5 (6-22); Blood Urea Nitrogen 11 mg/dL (7-17); Calcium 9.1 mg/dL (8.4-10.2); Carbon Dioxide 33 mmol/L (22-32); Chloride 103 mmol/L (98-107); Cholesterol 227 mg/dL (140-199); Estimated Glomerular Filt Rate > 60.0 mL/min (>60); Glucose 92 mg/dL (80-110); HDL Cholesterol 71 mg/dL (40-60); HEMOLYSIS < 15 (0-50); LDL Cholesterol Calculated 141 mg/dL (<100); Potassium 4.8 mmol/L (3.4-5.1); Sodium 138 mmol/L (137-145); Triglycerides 75 mg/dL (35-150)
[2020-09-03 10:44] LABS: Thyroid Stimulating Hormone 1.72 uIU/mL (0.47-4.68)
== END ==
PROVIDERS: PCP Student in an Organized Health Care Education/Training Program; Referring Provider Student in an Organized Health Care Education/Training Program; Visit Provider Student in an Organized Health Care Education/Training Program
DX: Z00.00 Encounter for general adult medical examination without abnormal findings (principal); I10 Essential (primary) hypertension
CPT/HCPCS: 36415; 80048; 80061; 83036; 84443; 85025

== ENCOUNTER → 2020-12-20 08:17 | Outpatient (CLI) | payer MEDICARE, OTHER, SELFPAY ==
--- NOTE | 2020-12-20 | DI.MG.S_ITS ---
BILATERAL DIGITAL SCREENING MAMMOGRAM 3D/2D WITH CAD: 12/20/2020 CLINICAL: Routine screening. Comparison is made to exams dated: 01/05/2019 mammogram, 12/13/2018 mammogram, 06/12/2017 mammogram, 01/29/2015 mammogram, and 01/07/2012 mammogram - [facility]. The tissue of both breasts is heterogeneously dense. This may lower the sensitivity of mammography. Current study was also evaluated with a Computer Aided Detection (CAD) system. There are benign vascular calcifications in both breasts. There also is a biopsy clip in the right breast. No significant masses, calcifications, or other findings are seen in either breast. There has been no significant interval change. IMPRESSION: BENIGN There is no mammographic evidence of malignancy. A 1 year screening mammogram is recommended. This exam was interpreted at Station ID: [id number]. NOTE: For mammograms, a report in lay terms will be sent to the patient. Approximately 15% of breast malignancies will not be visualized mammographically. In the management of a palpable breast mass, a negative mammogram must not discourage biopsy of a clinically suspicious lesion. Electronically Signed By: Adán fisher/araceli:12/20/2020 09:49:19 letter sent: Normal Exam ACR BI-RADS Category 2: Benign Finding(s) 3342F
== END ==
PROVIDERS: PCP Student in an Organized Health Care Education/Training Program; Referring Provider Student in an Organized Health Care Education/Training Program; Visit Provider Student in an Organized Health Care Education/Training Program
DX: Z12.31 Encounter for screening mammogram for malignant neoplasm of breast (principal)
CPT/HCPCS: 77063; 77067

== ENCOUNTER → 2021-10-04 14:25 | Outpatient (CLI) | payer MEDICARE, OTHER, SELFPAY ==
--- NOTE | 2021-10-04 | DI.RAD.S_ITS ---
PROCEDURE: XR HIP W PEL IF DONE RT 2V INDICATIONS: right hip pain TECHNIQUE: AP pelvis with lateral view(s) of the right hip(s). COMPARISON: None. FINDINGS: Bones: No fractures or dislocations. Pelvic ring appears intact. No suspicious bony lesions. Mild right hip degenerative change. Soft tissues: The visualized bowel gas pattern is normal. No suspicious soft tissue calcifications. IMPRESSION: Mild right hip degenerative change. No evidence acute bony abnormality of the pelvis and right hip. If clinical suspicion and/or symptoms persist, further assessment with repeat plain films, or advanced imaging (e.g., CT, MRI, or bone scan) may be helpful for further assessment. Dictated by: Mat Avila M.D. on 10/04/2021 at 15:15 Approved by: Mat Avila M.D. on 10/04/2021 at 15:17
== END ==
PROVIDERS: PCP Family Medicine; Referring Provider Family Medicine; Visit Provider Family Medicine
DX: M25.551 Pain in right hip (principal)
CPT/HCPCS: 73502

== ENCOUNTER → 2021-10-11 09:43 | Outpatient (CLI) | payer MEDICARE, OTHER, SELFPAY | PROVIDERS: PCP Family Medicine; Referring Provider Family Medicine; Visit Provider Family Medicine | DX: Z13.820 Encounter for screening for osteoporosis (principal); Z78.0 Asymptomatic menopausal state; M81.0 Age-related osteoporosis without current pathological fracture; Z92.23 Personal history of estrogen therapy | CPT/HCPCS: 77080 ==

== ENCOUNTER → 2021-12-31 15:40 | Outpatient (CLI) | payer MEDICARE, OTHER, SELFPAY ==
--- NOTE | 2021-12-31 | DI.MG.S_ITS ---
BILATERAL DIGITAL SCREENING MAMMOGRAM 3D/2D WITH CAD: 12/31/2021 CLINICAL: Routine screening. Comparison is made to exams dated: 12/20/2020 mammogram, 12/13/2018 mammogram, and 06/12/2017 mammogram - [facility]. Both breasts are heterogeneously dense, which may obscure small masses (category c / 51-75% glandular tissue). Current study was also evaluated with a Computer Aided Detection (CAD) system. There are benign vascular calcifications in both breasts. There also is a biopsy clip in the right breast. No significant masses, calcifications, or other findings are seen in either breast. There has been no significant interval change. IMPRESSION: BENIGN There is no mammographic evidence of malignancy. A 1 year screening mammogram is recommended. Based on the Tyrer Cuzick model (a risk assessment model) the patient's lifetime risk is 8.7% and her 10 year risk is 5.6%. According to the ACR, ACS, and NCCN guidelines, an annual breast MRI exam along with mammogram is recommended if the patient's lifetime risk is 20% or greater. This exam was interpreted at Station ID: [id number]. NOTE: For mammograms, a report in lay terms will be sent to the patient. Approximately 15% of breast malignancies will not be visualized mammographically. In the management of a palpable breast mass, a negative mammogram must not discourage biopsy of a clinically suspicious lesion. Electronically Signed By: Candelario wagoner/araceli:01/01/2022 09:24:47 letter sent: Normal Exam ACR BI-RADS Category 2: Benign Finding(s) 3342F
== END ==
PROVIDERS: PCP Family Medicine; Referring Provider Family Medicine; Visit Provider Family Medicine
DX: Z12.31 Encounter for screening mammogram for malignant neoplasm of breast (principal)
CPT/HCPCS: 77063; 77067

== ENCOUNTER 2022-02-10 10:16 | Emergency (ER) | payer MEDICARE, OTHER, SELFPAY ==
[2022-02-10] VITALS (10 sets, daily range): BP systolic 114–116; BP diastolic 55–56; PULSE 56–71; RESP 14; TEMP 36.7; O2SAT 96–100
--- NOTE | 2022-02-10 10:46 | DI.RAD.S_ITS ---
PROCEDURE: XR WRIST RT MIN 3V INDICATIONS: fall / pain/swelling right wrist. TECHNIQUE: 3 views of the wrist were acquired. COMPARISON: None. FINDINGS: Bones: Comminuted impacted distal radius fracture extending to the articular surface with dorsal angulation of the major distal fragment. Small ulnar styloid avulsion. No suspicious bony lesions. Soft tissues: No suspicious soft tissue calcifications. IMPRESSION: Comminuted, impacted distal radius fracture with angulation extending to the articular surface. Small ulnar styloid avulsion. Dictated by: Mat Avila M.D. on 02/10/2022 at 11:23 Approved by: Mat Avila M.D. on 02/10/2022 at 11:25
--- NOTE | 2022-02-10 11:03 | DI.RAD.S_ITS ---
PROCEDURE: XR ELBOW LT MIN 3V INDICATIONS: fall TECHNIQUE: 3 views of the elbow were acquired. COMPARISON: None. FINDINGS: Bones: Question subtle radial head fracture.. No suspicious bony lesions. Soft tissues: No true lateral obtained. Question elbow joint effusion. No suspicious soft tissue calcifications. IMPRESSION: Question subtle radial head fracture. Comment: Consider CT elbow for confirmation. Dictated by: Mat Avila M.D. on 02/10/2022 at 11:26 Approved by: Mat Avila M.D. on 02/10/2022 at 11:27
--- NOTE | 2022-02-10 12:47 | ED_ITS ---
HPI - Fall General Chief Complaint: Fall Stated Complaint: fell injured RT wrist and hit head Time Seen by Provider: 02/10/22 11:03 Source: patient and family Mode of arrival: Ambulatory History of Present Illness HPI Narrative: Patient is a 71-year-old female history of osteoporosis presenting today after ground level fall after slipping on ice. She thinks she fell backwards she may or may not have hit her head she did not lose consciousness. She is not on any antiplatelet or anticoagulation medication. Playing of right wrist pain and right elbow pain. No hip pain Related Data Home Medications Medication Instructions Recorded Confirmed cholecalciferol (vitamin D3) 25 3,000 unit PO DAILY 01/03/19 05/11/20 mcg (1,000 unit) capsule multivitamin 1 cap PO DAILY 01/03/19 05/11/20 Previous Rx's Medication Instructions Recorded hydrocodone 5 mg-acetaminophen 325 1 tab PO Q6H PRN pain #10 tabs 02/10/22 mg tablet Allergies Allergy/AdvReac Type Severity Reaction Status Date / Time tetracycline [TETRACYCLINE] Allergy Intermediate Hives and Verified 02/10/22 10:44 swelling Review of Systems Review of Systems Narrative: GENERAL: Denies chills,fever HEENT: Denies throat pain RESPIRATORY: Denies dyspnea, cough, wheezing CARDIOVASCULAR: Denies chest pain, palpitations GASTROINTESTINAL: Denies nausea, vomiting MUSCULOSKELETAL: Denies extremity pain, injury SKIN: No rash, no laceration, no pruritus NEUROLOGIC: Denies weakness, dizziness, headache, numbness 8 point review of systems is negative except for those stated above and HPI Patient History Medical History (Updated 02/10/22 @ 13:55 by Kate Jorge DO) Allergies Anxiety Cataracts, bilateral (~2016) Chicken pox Chronic low back pain Depression Endometriosis (~1979) Epiretinal membrane (~2009) Foot pain Fractures GERD (gastroesophageal reflux disease) (~2003) Hemorrhoid (~1981) Herpes (~1996) Measles Osteopenia Recurrent sinusitis Shoulder bursitis Tendonitis Vestibular migraine Surgical History Anesthesia Leg fracture, right (~2004) Family History Father Hypertension Stroke Mother Stroke Ulcerative colitis Sister Osteoporosis Grandfather History of heart disease Grandfather Aneurysm Social History household members: spouse Smoking Status: Never smoker second hand exposure: No alcohol intake: current substance use type: marijuana (occasionally I have some edibles, but I don't smoke it.) Smoking Status: Never smoker alcohol intake frequency: 0-2 drinks per day Alcohol type: beer Substance Use Type: marijuana Exam Initial Vital Signs Initial Vital Signs: Vital Signs Temperature 98.1 F 02/10/22 10:25 Pulse Rate 56 L 02/10/22 10:25 Respiratory Rate 14 02/10/22 10:25 Blood Pressure 114/55 L 02/10/22 10:25 Pulse Oximetry 96 02/10/22 10:25 Oxygen Delivery Method 02/10/22 10:25 GENERAL: Alert pleasant 71-year-old female appears uncomfortable and in [no acute] distress. HEENT: Head atraumatic,EOMI, pupils reactive, face symmetric, [moist] mucous membranes CARDIOVASCULAR: Regular rate and rhythm without murmurs, rubs or gallops. RESPIRATORY: Breath sounds equal bilaterally, no wheezes rales or rhonchi. ABDOMEN: Soft, nontender. Normoactive bowel sounds all 4 quadrants. No guarding or rebound. EXTREMITIES: Normal range of motion, no clubbing or edema. Neurovascularly intact Right wrist obvious deformity able to move fingers distal radial pulse intact. Right elbow minimal swelling tender to touch over radial head. No clavicle step-off or deformity shoulder nontender NEUROLOGICAL: Alert and oriented x4.Normal gait and speech SKIN: Warm, dry, no laceration, no petechiae, no rashes or lesions. Procedures Nerve Block Nerve Block 1: Local Anesthetic: lidocaine 1% Amount of anesthesia used (mL): 10 Side: right Orthopedic Joint Reduction Joint #1: Joint Reduction Location: wrist Analgesia: hematoma block Local Anesthesia: lidocaine 2% Amount of anesthesic used (mL): 10 Technique used: traction/counter-traction and direct manipulation Post-reduction neuro exam: intact and no change Post-reduction vascular: no change Post Reduction X-Ray Obtained: Yes Post Reduction X-Ray Results: reduced Splint Applied: Yes Patient Tolerated Procedure: Well and No complications Orthopedic Splinting/Casting Injury #1: Side: right Upper Extremity Injury Location: wrist Upper Extremity Immobilizer: sugar tong splint Post splinting neuro exam: intact Post splinting vascular exam: intact Placed by: Provider Injury #2: Upper Extremity Injury Location: elbow Upper Extremity Immobilizer: sling/shoulder immobilizer and posterior splint Post splinting neuro exam: intact and no change Post splinting vascular exam: no change Placed by: Provider Course Orders Ordered: Discontinued Medications Hydrocodone Bitart/Acetaminophen (Hydrocodone/Acet 5/325 Tablet) 1 tab PO NOW ONE Stop: 02/10/22 12:56 Last Admin: 02/10/22 13:13 Dose: 1 tab Documented By: NR Lidocaine HCl (Lidocaine 1% (Pf) 5 Ml) 5 ml INJ NOW ONE Stop: 02/10/22 12:22 Last Admin: 02/10/22 13:13 Dose: 5 ml Documented By: NR Vital Signs Vital signs: Vital Signs - 8 hr 02/10/22 10:25 02/10/22 10:37 02/10/22 10:37 Temperature 98.1 F Pulse Rate 56 L 58 L Respiratory Rate 14 Blood Pressure 114/55 L 114/55 L Pulse Oximetry 96 97 Oxygen Delivery Method Room Air 02/10/22 11:00 02/10/22 11:30 02/10/22 12:00 Temperature Pulse Rate 58 L 60 67 Respiratory Rate Blood Pressure Pulse Oximetry 99 100 100 Oxygen Delivery Method 02/10/22 12:30 02/10/22 13:12 Temperature Pulse Rate 71 63 Respiratory Rate Blood Pressure Pulse Oximetry 100 97 Oxygen Delivery Method MDM - Fall Imaging Data Extremity x-ray #1: Radiologist's Impression: Signed Patient: Traci Humphrey MR#: [id number] : 1950 Acct:[id number] Age/Sex: 71 / F Date of Service: 02/10/22 Loc: ED Accession Number: [id number] ?? Procedure: XR wrist RT min 3V Ordering Provider: Kate Jorge D.O. PROCEDURE:? XR WRIST RT MIN 3V ? INDICATIONS: fall / pain/swelling right wrist. ? TECHNIQUE:? 3 views of the wrist were acquired.? ? COMPARISON:? None. ? FINDINGS:? ? Bones:? Comminuted impacted distal radius fracture extending to the articular surface with dorsal angulation of the major distal fragment.? Small ulnar styloid avulsion.? No suspicious bony lesions.? ? Soft tissues:? No suspicious soft tissue calcifications.? ? IMPRESSION:? Comminuted, impacted distal radius fracture with angulation extending to the articular surface.? Small ulnar styloid avulsion. ? ? Dictated by: Mat Avila M.D. on 02/10/2022 at 11:23 ? ? Extremity x-ray #2: Radiologist's Impression: Shasha HAYDE [id number] XRay Report Signed Patient: Traci Humphrey MR#: [id number] : 1950 Acct:[id number] Age/Sex: 71 / F Date of Service: 02/10/22 Loc: ED Accession Number: [id number] ?? Procedure: XR elbow LT min 3V Ordering Provider: Kate Jorge D.O. PROCEDURE:? XR ELBOW LT MIN 3V ? INDICATIONS:? fall ? TECHNIQUE:? 3 views of the elbow were acquired.? ? COMPARISON:? None. ? FINDINGS:? ? Bones:? Question subtle radial head fracture..? No suspicious bony lesions.? ? Soft tissues:? No true lateral obtained.? Question elbow joint effusion.? No suspicious soft tissue calcifications.? ? ? IMPRESSION:? Question subtle radial head fracture. ? Comment:? Consider CT elbow for confirmation. ? Dictated by: Mat Avila M.D. on 02/10/2022 at 11:26 ? ? Extremity x-ray #3: Radiologist's Impression: XRay Report Signed Patient: Traci Humphrey MR#: [id number] : 1950 Acct:[id number] Age/Sex: 71 / F Date of Service: 02/10/22 Loc: ED Accession Number: [id number] ?? Procedure: XR wrist RT 2V Ordering Provider: Kate Jorge D.O. PROCEDURE:? XR WRIST RT 2V ? INDICATIONS: post reduction ? TECHNIQUE:? 2 views of the wrist were acquired.? ? [facility] 10[facility]. ? FINDINGS:? ? Bones:? There is interval reduction of earlier noted comminuted, impacted and displaced distal radial fracture with improved wrist alignment.? Interval cast placement over right wrist is also seen.? Ulnar styloid fracture is again noted.? No new fracture or dislocation.? No suspicious bony lesions.? ? Soft tissues:? No suspicious soft tissue calcifications.? ? IMPRESSION:? Post reduction of earlier noted comminuted and impacted distal radial fracture with improved wrist alignment.? Ulnar styloid fracture is again seen.? No new fracture or dislocation. ? ? Dictated by: Eriberto De Los Santos M.D. on 02/10/2022 at 14:45 ? ? Approved by: Eriberto De Los Santos M.D. on 02/10/2022 at 14:46 ? MDM Narrative Medical decision making narrative: Patient presents with a mechanical ground level fall in obvious right wrist fracture. There is also suspected radial head fracture as well. It is easily reduced neurovascularly intact. At this time she is not on anticoagulation or antiplatelet medication she showing no sign of head trauma I see no need for imaging her head. This time follow-up with orthopedics Differential diagnosis sprain versus fracture Discharge Plan Departure Patient Disposition: Home Clinical Impression: Fracture of right wrist, Elbow fracture, right Instructions: DI for Wrist Fracture Activity Restrictions/Additional Instructions: *You have been diagnosed with right wrist fracture, possible elbow fracture *What to do: At this time keep splint on at all times. Wear sling as needed cover for bathing. Ice 20-30 minutes at a time *Continue to take medications as directed [place] 1 tablet every 6 hours if needed for severe pain *Follow up with your primary care provider in 2-3 days or call [phone] Call orthopedics today to schedule follow-up appointment *Return to ER if you should have increasing pain swelling numbness tingling or any new, worsening or concerning symptoms CONTROLLED SUBSTANCE DISCHARGE (Narcotoic/benzodiazepine/Flexeril/Phenergan) 1. You have been prescribed narcotic medications, it does have acetaminophen/Tylenol/paracetamol in it, DO NOT TAKE MORE THAN 4,00mg in 24 hours of Tylenol. TRAMADOL DOES NOT CONTAIN TYLENOL 2. Please understand that we cannot provide further refills of narcotics, benzodiazepines or controlled substances through the ED and her pain management will need to be through your provider. 3. While on these medications you cannot drive or operate heavy machinery. 4. You cannot sign legal documents or perform any duties such as this. 5. As long as you're taking opiate pain medications he should also be taking a stool softener such as Colace, Dulcolax, MiraLAX or prune juice, to help avoid constipation. Prescriptions: New hydrocodone-acetaminophen 5-325 mg tablet 1 tab PO Q6H PRN (Reason: pain) Qty: 10 0RF No Action multivitamin Capsule 1 cap PO DAILY cholecalciferol (vitamin D3) 1,000 unit capsule 3,000 unit PO DAILY Referrals: [facility] [Provider Group] Alessandro Saldaña MD [Primary Care Provider] - Visit Report Forms: Patient Portal/API
[2022-02-10] MEDS: LIDOCAINE 1% (PF) 5 ML INJ (13:13)
[2022-02-10] MEDS: HYDROCODONE/ACET 5/325 TABLET 1 TAB PO (13:13)
--- NOTE | 2022-02-10 13:15 | DI.RAD.S_ITS ---
PROCEDURE: XR WRIST RT 2V INDICATIONS: post reduction TECHNIQUE: 2 views of the wrist were acquired. COMPARISON: [facility], , XR WRIST RT MIN 3V, 02/10/2022, 10:47. FINDINGS: Bones: There is interval reduction of earlier noted comminuted, impacted and displaced distal radial fracture with improved wrist alignment. Interval cast placement over right wrist is also seen. Ulnar styloid fracture is again noted. No new fracture or dislocation. No suspicious bony lesions. Soft tissues: No suspicious soft tissue calcifications. IMPRESSION: Post reduction of earlier noted comminuted and impacted distal radial fracture with improved wrist alignment. Ulnar styloid fracture is again seen. No new fracture or dislocation. Dictated by: Eriberto De Los Santos M.D. on 02/10/2022 at 14:45 Approved by: Eriberto De Los Santos M.D. on 02/10/2022 at 14:46
== END 2022-02-10 14:44 | disposition home or self-care (01) ==
PROVIDERS: Emergency Provider Emergency Medicine; PCP Family Medicine
DX: S52.501A Unspecified fracture of the lower end of right radius, initial encounter for closed fracture (principal); W00.0XXA Fall on same level due to ice and snow, initial encounter
CPT/HCPCS: 25605; 29105; 64450; 73080; 73100; 73110; 99283; 99284

== ENCOUNTER → 2022-07-04 11:34 | Outpatient (CLI) | payer MEDICARE, OTHER, SELFPAY ==
--- NOTE | 2022-07-04 11:36 | DI.RAD.S_ITS ---
PROCEDURE: XR KNEE LT 3V INDICATIONS: bilateral knee pain TECHNIQUE: 3 views of the knee were acquired. COMPARISON: None. FINDINGS: Bones: No fractures or dislocations. No suspicious bony lesions. Intramedullary flori within the right tibia. Mild tricompartmental periarticular osteophyte formation bilaterally. Soft tissues: No joint effusion. No suspicious soft tissue calcifications. IMPRESSION: 1. Postsurgical sequelae. 2. Osteoarthritis. 3. No acute fracture. No osseous lesion. If symptoms and/or clinical suspicion for pathology persist, further assessment with repeat, or advanced imaging (e.g., CT, MRI, or bone scan) may be helpful for further assessment. Dictated by: Trish Heaton M.D. on 07/04/2022 at 13:10 Transcribed by: PORTIA on 07/04/2022 at 13:10 Approved by: Trish Heaton M.D. on 07/04/2022 at 16:26
--- NOTE | 2022-07-04 11:36 | DI.RAD.S_ITS ---
PROCEDURE: XR KNEE RT 3V INDICATIONS: bilateral knee pain TECHNIQUE: 3 views of the knee were acquired. COMPARISON: None. FINDINGS: Bones: No fractures or dislocations. No suspicious bony lesions. Mild tricompartmental periarticular osteophyte formation. Intramedullary flori within the tibia. Soft tissues: No joint effusion. No suspicious soft tissue calcifications. IMPRESSION: 1. Postsurgical sequelae. 2. Osteoarthritis. 3. No acute fracture. No osseous lesion. If symptoms and/or clinical suspicion for pathology persist, further assessment with repeat, or advanced imaging (e.g., CT, MRI, or bone scan) may be helpful for further assessment. Dictated by: Trish Heaton M.D. on 07/04/2022 at 13:11 Transcribed by: PORTIA on 07/04/2022 at 13:11 Approved by: Trish Heaton M.D. on 07/04/2022 at 16:26
== END ==
PROVIDERS: PCP Family Medicine; Referring Provider Family Medicine; Visit Provider Family Medicine
DX: M17.0 Bilateral primary osteoarthritis of knee (principal); M25.561 Pain in right knee; M25.562 Pain in left knee; Z98.890 Other specified postprocedural states
CPT/HCPCS: 73562

== ENCOUNTER → 2023-01-02 07:40 | Outpatient (CLI) | payer MEDICARE, OTHER, SELFPAY ==
--- NOTE | 2023-01-02 | DI.MG.S_ITS ---
BILATERAL DIGITAL SCREENING MAMMOGRAM 3D/2D WITH CAD: 01/02/2023 CLINICAL: Routine screening. Comparison is made to exams dated: 12/31/2021 mammogram, 12/20/2020 mammogram, 01/05/2019 mammogram, and 12/13/2018 mammogram - [facility]. Both breasts are heterogeneously dense, which may obscure small masses (category c / 51-75% glandular tissue). Current study was also evaluated with a Computer Aided Detection (CAD) system. There are benign vascular calcifications in both breasts. There also is a biopsy clip in the right breast. No significant masses, calcifications, or other findings are seen in either breast. There has been no significant interval change. IMPRESSION: BENIGN There is no mammographic evidence of malignancy. A 1 year screening mammogram is recommended. Based on the Tyrer Cuzick model (a risk assessment model) the patient's lifetime risk is 8.3% and her 10 year risk is 5.7%. According to the ACR, ACS, and NCCN guidelines, an annual breast MRI exam along with mammogram is recommended if the patient's lifetime risk is 20% or greater. This exam was interpreted at Station ID: [id number]. NOTE: For mammograms, a report in lay terms will be sent to the patient. Approximately 15% of breast malignancies will not be visualized mammographically. In the management of a palpable breast mass, a negative mammogram must not discourage biopsy of a clinically suspicious lesion. Electronically Signed By: Candelario wagoner/araceli:01/02/2023 09:20:40 letter sent: Normal Exam ACR BI-RADS Category 2: Benign Finding(s) 3342F
== END ==
PROVIDERS: PCP Family Medicine; Referring Provider Family Medicine; Visit Provider Family Medicine
DX: Z12.31 Encounter for screening mammogram for malignant neoplasm of breast (principal)
CPT/HCPCS: 77063; 77067

== ENCOUNTER → 2023-02-20 08:38 | Outpatient (CLI) | payer MEDICARE, OTHER, SELFPAY ==
[2023-02-20 09:44] LABS: Alanine Aminotransferase 13 IU/L (<35); Albumin 3.7 g/dL (3.5-5.0); Albumin Globulin Ratio 1.5 (1.0-2.8); Alkaline Phosphatase 55 U/L (38-126); Aspartate Aminotransferase 25 IU/L (14-36); BUN Creatinine Ratio 16.2 (6-22); Bilirubin Total 0.6 mg/dL (0.2-1.3); Blood Urea Nitrogen 12 mg/dL (7-17); Calcium 8.8 mg/dL (8.4-10.2); Carbon Dioxide 32 mmol/L (22-32); Chloride 100 mmol/L (98-107); Cholesterol 227 mg/dL (140-199); Estimated Glomerular Filt Rate > 60 mL/min (>60); Globulin 2.5 g/dL (1.7-4.1); Glucose 89 mg/dL (80-110); HDL Cholesterol 59 mg/dL (40-60); HEMOLYSIS < 15 (0-50); LDL Cholesterol Calculated 151 mg/dL (<100); Potassium 4.7 mmol/L (3.4-5.1); Sodium 136 mmol/L (137-145); Total Protein 6.2 g/dL (6.3-8.2); Triglycerides 84 mg/dL (35-150)
== END ==
PROVIDERS: PCP Family Medicine; Referring Provider Psychiatry & Neurology Neurology; Visit Provider Psychiatry & Neurology Neurology
DX: Z51.81 Encounter for therapeutic drug level monitoring (principal); E78.5 Hyperlipidemia, unspecified
CPT/HCPCS: 36415; 80053; 80061

== ENCOUNTER → 2023-06-17 09:44 | Outpatient (CLI) | payer MEDICARE, OTHER, SELFPAY ==
--- NOTE | 2023-06-17 09:45 | DI.RAD.S_ITS ---
PROCEDURE: XR DEXA AXIAL SKELETON INDICATIONS: bone density screening COMPARISON: [facility], [facility], XR DEXA AXIAL SKELETON, 10/11/2021, 10:16. FINDINGS: Lumbar Spine: Bone mineral density 0.819 g/cm2, T score -1.2, significant interval increase in bone mineral density. Left Hip: Bone mineral density 0.744 g/cm2, T score -1.6, no significant interval change. Left Femoral Neck: Bone mineral density 0.622 g/cm2, T score -2.0, no significant interval change. Right Hip: Bone mineral density 0.709 g/cm2, T score -1.9, no significant interval change. Right Femoral Neck: Bone mineral density 0.598 g/cm2, T score -2.3, no significant oval change. Fracture Risk Calculation (when applicable): Not provided due to treated for osteoporosis. (T score greater or equal to -1.0 to: NORMAL) (T score from -1.1 to -2.4: OSTEOPENIA) (T score less than or equal to -2.5: OSTEOPOROSIS) IMPRESSION: Osteopenia. There is significant interval increase in bone mineral density at the lumbar spine. Follow-up guidelines as follows: Osteoporosis: Consider a repeat DEXA and Vertebral Fracture Assessment (VFA) exam in 2 years or sooner if medically necessary, to reassess this patient's status. Osteopenia: Consider a repeat DEXA in 2-3 years to reassess this patient's status, or if there is a new clinical indication. Normal: Consider a repeat DEXA in 5 years or sooner, or if there is a new clinical indication. Dictated by: Adán Hayden M.D. on 06/17/2023 at 11:25 Approved by: Adán Hayden M.D. on 06/17/2023 at 11:28
== END ==
LOC: RAD 09:44
PROVIDERS: PCP Family Medicine; Referring Provider Family Medicine; Visit Provider Family Medicine
DX: N95.9 Unspecified menopausal and perimenopausal disorder (principal); M85.89 Other specified disorders of bone density and structure, multiple sites
CPT/HCPCS: 77080

== ENCOUNTER → 2024-02-22 14:57 | Outpatient (CLI) | payer MEDICARE, OTHER, SELFPAY ==
--- NOTE | 2024-02-22 14:59 | DI.MG.S_ITS ---
BILATERAL DIGITAL SCREENING MAMMOGRAM 3D/2D WITH CAD: 02/22/2024 CLINICAL: Routine screening. Comparison is made to exams dated: 01/02/2023 mammogram, 12/31/2021 mammogram, and 12/20/2020 mammogram - [facility]. The breasts are heterogeneously dense, which may obscure small masses (category c / 51-75% glandular tissue). Current study was also evaluated with a Computer Aided Detection (CAD) system. There is a possible irregular high density asymmetry in the left breast posterior depth medial region seen on the craniocaudal view only. No other significant masses, calcifications, or other findings are seen in either breast. IMPRESSION: INCOMPLETE: NEED ADDITIONAL IMAGING EVALUATION The possible irregular high density asymmetry in the left breast may represent the sternalis muscle as suggested on prior exams but appears more prominent. This is indeterminate. Additional views with possible ultrasound are recommended. Based on the Tyrer Cuzick model (a risk assessment model) the patient's lifetime risk is 7.8% and her 10 year risk is 5.9%. According to the ACR, ACS, and NCCN guidelines, an annual breast MRI exam along with mammogram is recommended if the patient's lifetime risk is 20% or greater. This exam was interpreted at Station ID: [id number]. NOTE: For mammograms, a report in lay terms will be sent to the patient. Approximately 15% of breast malignancies will not be visualized mammographically. In the management of a palpable breast mass, a negative mammogram must not discourage biopsy of a clinically suspicious lesion. Electronically Signed By: Christiano Rodriguez M.D. at/:02/23/2024 07:54:13 letter sent: Additional Imaging Needed ACR BI-RADS Category 0: Incomplete: Need Additional Imaging Evaluation
== END ==
PROVIDERS: PCP Family Medicine; Referring Provider Family Medicine; Visit Provider Family Medicine
DX: Z12.31 Encounter for screening mammogram for malignant neoplasm of breast (principal); R92.333 Mammographic heterogeneous density, bilateral breasts
CPT/HCPCS: 77063; 77067

== ENCOUNTER → 2024-03-17 08:46 | Outpatient (CLI) | payer MEDICARE, OTHER, SELFPAY ==
--- NOTE | 2024-03-17 08:47 | DI.MG.S_ITS ---
UNILATERAL LEFT DIGITAL DIAGNOSTIC MAMMOGRAM 3D/2D WITH ADDITIONAL VIEWS: 03/17/2024 CLINICAL: Additional evaluation requested from prior study. Comparison is made to exams dated: 02/22/2024 mammogram, 01/02/2023 mammogram, and 12/31/2021 mammogram - [facility]. The breasts are heterogeneously dense, which may obscure small masses (category c / 51-75% glandular tissue). The previously described possible benign irregular high density asymmetry in the left breast posterior depth medial region seen on the craniocaudal view only is not reproduced and presumably represented superimposed breast tissue versus sternalis muscle. This is not seen in today's additional views and is consistent with summation artifact. No other significant masses or calcifications are seen in the breast. IMPRESSION: NEGATIVE The previously described asymmetry disperses with additional views and is consistent with summation artifact. There is no mammographic evidence of malignancy. A 1 year screening mammogram is recommended. Findings and recommendations were conveyed to the patient during today's evaluation. Based on the Tyrer Cuzick model (a risk assessment model) the patient's lifetime risk is 7.8% and her 10 year risk is 5.9%. According to the ACR, ACS, and NCCN guidelines, an annual breast MRI exam along with mammogram is recommended if the patient's lifetime risk is 20% or greater. This exam was interpreted at Station ID: [id number]. NOTE: For mammograms, a report in lay terms will be sent to the patient. Approximately 15% of breast malignancies will not be visualized mammographically. In the management of a palpable breast mass, a negative mammogram must not discourage biopsy of a clinically suspicious lesion. Electronically Signed By: Christiano nair/:03/17/2024 09:20:20 letter sent: Normal Exam ACR BI-RADS Category 1: Negative
== END ==
PROVIDERS: PCP Family Medicine; Referring Provider Family Medicine; Visit Provider Family Medicine
DX: R92.8 Other abnormal and inconclusive findings on diagnostic imaging of breast (principal); R92.333 Mammographic heterogeneous density, bilateral breasts
CPT/HCPCS: 77065; G0279

== ENCOUNTER → 2024-09-13 07:31 | Outpatient (CLI) | payer MEDICARE, OTHER, SELFPAY ==
[2024-09-13 09:28] LABS: Alanine Aminotransferase 17 IU/L (<35); Albumin 4.0 g/dL (3.5-5.0); Albumin Globulin Ratio 1.7 (1.0-2.8); Alkaline Phosphatase 65 U/L (38-126); Blood Urea Nitrogen 12 mg/dL (7-17); Calcium 8.5 mg/dL (8.4-10.2); Carbon Dioxide 28 mmol/L (22-32); Chloride 103 mmol/L (98-107); Cholesterol 208 mg/dL (140-199); Estimated Glomerular Filt Rate > 60 mL/min (>60); Globulin 2.4 g/dL (1.7-4.1); Glucose 83 mg/dL (70-99); HDL Cholesterol 62 mg/dL (40-60); HEMOLYSIS < 15 (0-50); Potassium 4.1 mmol/L (3.4-5.1); Sodium 136 mmol/L (137-145); Total Protein 6.4 g/dL (6.3-8.2); Triglycerides 64 mg/dL (35-150)
[2024-09-14 00:08] LABS: CRP, High Sensitivity 0.45 mg/L (0.00-3.00)
== END ==
PROVIDERS: PCP Family Medicine; Referring Provider Family Medicine; Visit Provider Family Medicine
DX: E78.00 Pure hypercholesterolemia, unspecified (principal); M81.0 Age-related osteoporosis without current pathological fracture
CPT/HCPCS: 36415; 80053; 80061; 86140

== ENCOUNTER 2024-09-18 09:41 | Emergency (ER) | payer MEDICARE, OTHER, SELFPAY ==
[2024-09-18] VITALS (10 sets, daily range): BP systolic 119–163; BP diastolic 56–80; PULSE 60–75; RESP 12–22; TEMP 37; O2SAT 95–100; BMI 24.3
--- NOTE | 2024-09-18 09:51 | DI.RAD.S_ITS ---
PROCEDURE: XR CHEST 1V INDICATIONS: Chest Pain TECHNIQUE: One view of the chest was acquired. COMPARISON: None. FINDINGS: Surgical changes and devices: None. Lungs and pleura: Lungs are clear. No pleural effusions or pneumothorax. Mediastinum: Mediastinal contours appear normal. Heart size is normal. Bones and chest wall: No suspicious bony lesions. Overlying soft tissues appear unremarkable. IMPRESSION: No acute cardiopulmonary abnormality is seen. Approved by: Amor Sanderson M.D. on 09/18/2024 at 9:53
--- NOTE | 2024-09-18 10:01 | EKG_ITS ---
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
[2024-09-18 10:20] LABS: Add Manual Diff / Slide Review NO; Hematocrit 41.4 % (36-46); Hemoglobin 14.2 g/dL (12.0-16.0); Lymphocytes Absolute Auto 2200 /uL (1100-4500); Mean Corpuscular HGB Conc 34.4 % (30-36); Mean Corpuscular Hemoglobin 29.7 PG (26-34); Mean Corpuscular Volume 86.3 fL (80-100); Platelet Count 229 X10^3/uL (150-400)
[2024-09-18 10:27] LABS: INR 1.0 (0.9-1.3); Prothrombin Time 11.4 SECONDS (9.4-12.5)
[2024-09-18 10:29] LABS: PTT Partial Thromboplastin Tim 29 SECONDS (25.1-36.5)
[2024-09-18 10:32] LABS: Alanine Aminotransferase 21 IU/L (<35); Albumin 4.1 g/dL (3.5-5.0); Albumin Globulin Ratio 1.4 (1.0-2.8); Alkaline Phosphatase 56 U/L (38-126); Blood Urea Nitrogen 13 mg/dL (7-17); Calcium 9.3 mg/dL (8.4-10.2); Carbon Dioxide 29 mmol/L (22-32); Chloride 101 mmol/L (98-107); Creatine Kinase 74 U/L (30-135); Estimated Glomerular Filt Rate > 60 mL/min (>60); Globulin 3.0 g/dL (1.7-4.1); Glucose 57 mg/dL (70-99); HEMOLYSIS 29 (0-50); Lipase 99 U/L (23-300); Magnesium 1.8 mg/dL (1.6-2.3); Potassium 4.3 mmol/L (3.4-5.1); Sodium 138 mmol/L (137-145); Total Protein 7.1 g/dL (6.3-8.2)
[2024-09-18 10:43] LABS: NT-proBNP (BNP-Adult 18+) 141 pg/mL (<125); Troponin I < 0.012 ng/mL (0.01-0.034)
--- NOTE | 2024-09-18 11:32 | ED.CHESTPAIN ---
HPI - Chest Pain General Chief Complaint: Chest Pain Stated Complaint: Chest and back pain Time Seen by Provider: 09/18/24 10:02 Mode of arrival: Ambulatory Limitations: no limitations History of Present Illness HPI narrative: 74 years old female came today complaining of upper back pain across the upper back off and on since this morning and tightness in the mid chest for the last 2 days as constant tightness without fever, chills, nausea vomiting, dizziness, lightheadedness, shortness of breath, loss of consciousness, sweating, palpitation, abdominal pain, low back pain, diarrhea, constipation, urine problem, leg pain, leg swelling, injury. She denied history of lung problem, heart problem, blood clot. Related Data Home Medications ?Medication ?Instructions ?Recorded ?Confirmed cholecalciferol (vitamin D3) 25 3,000 unit PO DAILY 01/03/19 07/21/24 mcg (1,000 unit) capsule venlafaxine 37.5 mg 37.5 mg PO 07/22/22 07/21/24 capsule,extended release 24 hr magnesium PO 03/01/24 07/21/24 methyl B complex PO 03/01/24 07/21/24 vitamins A,C,[id number]-[id number]-ptacqc 4,296 1 cap PO BID 03/01/24 07/21/24 mcg-226 mg-90 mg capsule (PreserVision AREDS) Previous Rx's ?Medication ?Instructions ?Recorded estradiol 0.01% (0.1 mg/gram) 1 g vaginal 2XW #42.5 grams 03/01/24 vaginal cream progesterone micronized 100 mg 100 mg PO BEDTIME #90 caps 07/21/24 capsule alendronate 70 mg tablet 70 mg PO QWEEK #20 tabs 09/01/24 cyclobenzaprine 5 mg tablet 5 mg PO TID PRN muscle spasm #15 09/18/24 tabs Allergies Allergy/AdvReac Type Severity Reaction Status Date / Time tetracycline (TETRACYCLINE) Allergy Intermediate Hives and Verified 09/18/24 10:18 swelling Review of Systems Review of Systems Narrative: Positive for upper back pain, chest tightness. Negative for fever, chills, nausea vomiting, dizziness, lightheadedness, shortness of breath, loss of consciousness, sweating, palpitation, abdominal pain, low back pain, diarrhea, constipation, urine problem, leg pain, leg swelling, injury. Patient History Medical History (Updated 09/18/24 @ 13:09 by Travis Rosales MD) Shoulder bursitis Chronic low back pain Vestibular migraine Allergies Depression Anxiety Tendonitis Osteopenia Fractures Foot pain Measles Chicken pox Epiretinal membrane (~2009) Recurrent sinusitis Cataracts, bilateral (~2016) Herpes (~1996) Endometriosis (~1979) Hemorrhoid (~1981) GERD (gastroesophageal reflux disease) (~2003) Surgical History Anesthesia Leg fracture, right (~2004) Family History Father Hypertension Stroke Mother Stroke Ulcerative colitis Sister Osteoporosis Grandfather History of heart disease Grandfather Aneurysm Social History household members: spouse Smoking Status: Never smoker second hand exposure: No alcohol intake: current substance use type: marijuana (occasionally I have some edibles, but I don't smoke it.) Smoking Status: Never smoker alcohol intake frequency: 0-2 drinks per day Alcohol type: beer Exam Initial Vital Signs Initial Vital Signs: Vital Signs Temperature 98.6 F 09/18/24 09:41 Pulse Rate 72 09/18/24 09:41 Respiratory Rate 18 09/18/24 09:41 Blood Pressure 137/68 09/18/24 09:41 Pulse Oximetry 100 09/18/24 09:41 Oxygen Delivery Method Room Air 09/18/24 09:41 Const General: cooperative, comfortable, well developed and No acute distress Neck Neck: supple Resp Other: Clear to auscultation bilaterally. No respiratory distress. Cardio Other: Normal S1-S2 without murmur. Regular rhythm. GI Other: Soft, nontender, no distention. No guarding or rebound tenderness. Skin General: no rashes or lesions noted Neuro Other: Alert oriented x4. Extrem Other: No pedal edema on both legs. Course Orders Ordered: Discontinued Medications Aspirin (Aspirin 81 Mg Chew Tab) 324 mg PO NOW ONE Stop: 09/18/24 09:52 Last Admin: 09/18/24 11:38 Dose: 324 mg Documented By: BT Vital Signs Vital signs: Vital Signs - 8 hr 09/18/24 09:41 Temperature 98.6 F Pulse Rate 72 Respiratory Rate 18 Blood Pressure 137/68 Pulse Oximetry 100 Oxygen Delivery Method Room Air MDM - Chest Pain Lab Data 09/18/24 10:11 09/18/24 10:11 Labs: Lab Results 09/18/24 09/18/24 Range/Units 10:11 13:18 WBC 6.0 (4.5-11.0) X10^3/uL RBC 4.79 (4.0-5.2) X10^6/uL Hgb 14.2 (12.0-16.0) g/dL Hct 41.4 (36-46) % MCV 86.3 (80-100) fL MCH 29.7 (26-34) PG MCHC 34.4 (30-36) % RDW 14.3 (11.6-14.8) % Plt Count 229 (150-400) X10^3/uL Neut % (Auto) 48.3 L (50-75) % Lymph % (Auto) 36.5 (25-40) % Rush % (Auto) 12.3 (3-14) % Eos % (Auto) 2.0 (2-4) % Baso % (Auto) 0.9 (0-2) % Neut # (Auto) 2900 (1826-3790) /uL Lymph # (Auto) 2200 (0688-1791) /uL Rush # (Auto) 700 (0-900) /uL Eos # (Auto) 100 (0-450) /uL Baso # (Auto) 100 (0-100) /uL PT 11.4 (9.4-12.5) SECONDS INR 1.0 (0.9-1.3) APTT 29 (25.1-36.5) SECONDS D-Dimer 336 (<500) ng/ml Sodium 138 (137-145) mmol/L Potassium 4.3 (3.4-5.1) mmol/L Chloride 101 (98-107) mmol/L Carbon Dioxide 29 (22-32) mmol/L BUN 13 (7-17) mg/dL Creatinine 0.81 (0.52-1.04) mg/dL Estimated GFR > 60 (>60) mL/min BUN/Creatinine Ratio 16.0 (6-22) Glucose 57 L (70-99) mg/dL POC Whole Bld Glucose 158 H (70-99) mg/dL Calcium 9.3 (8.4-10.2) mg/dL Magnesium 1.8 (1.6-2.3) mg/dL Total Bilirubin 0.5 (0.2-1.3) mg/dL AST 37 H (14-36) IU/L ALT 21 (<35) IU/L Alkaline Phosphatase 56 (38-126) U/L Total Creatine Kinase 74 (30-135) U/L Troponin I < 0.012 (0.01-0.034) ng/mL NT-Pro-B Natriuret Pep 141 H (<125) pg/mL Total Protein 7.1 (6.3-8.2) g/dL Albumin 4.1 (3.5-5.0) g/dL Globulin 3.0 (1.7-4.1) g/dL Albumin/Globulin Ratio 1.4 (1.0-2.8) Lipase 99 (23-300) U/L Imaging Data Chest x-ray: Radiologist's Impression: PROCEDURE: XR CHEST 1V INDICATIONS: Chest Pain TECHNIQUE: One view of the chest was acquired. COMPARISON: None. FINDINGS: Surgical changes and devices: None. Lungs and pleura: Lungs are clear. No pleural effusions or pneumothorax. Mediastinum: Mediastinal contours appear normal. Heart size is normal. Bones and chest wall: No suspicious bony lesions. Overlying soft tissues appear unremarkable. IMPRESSION: No acute cardiopulmonary abnormality is seen. CTA chest abdomen and pelvis: Radiologist's Impression: PROCEDURE: CT ANGIO CHEST ABDOMEN PELVIS INDICATIONS: Chest pain, upper back pain TECHNIQUE: Precontrast 5 mm thick sections acquired from the lung apices to the iliac crests. After the administration of intravenous contrast, 2.5 mm thick sections again acquired from the lung apices to the iliac crests. Maximum intensity projection (MIP) oblique sagittal and coronal reformats were then acquired. For radiation dose reduction, the following was used: automated exposure control. COMPARISON: None. FINDINGS: Image quality: Diagnostic. AORTA: No aortic aneurysm. No acute aortic syndrome. CHEST: Lower Neck: No enlarged lymph nodes. Thyroid: No thyroid nodules which require sonographic evaluation. Axillae: No enlarged lymph nodes. Chest Wall: Unremarkable. Lungs and Pleura: No pneumothorax or pleural effusions. No consolidation or suspicious nodules. biapical scarring Heart: Heart size is normal. No pericardial effusion. Thoracic Vessels: Pulmonary arteries demonstrate normal size. Mediastinum and Michelle: No enlarged lymph nodes. Esophagus: No wall thickening. No hiatal hernia. ABDOMEN: Liver: No solid mass. Gallbladder: No radiopaque gallstones or wall thickening. Biliary ducts: No biliary dilation. Pancreas: No ductal dilation. Spleen: Size is within normal limits. Adrenal Glands: No adrenal nodules. Kidneys and Ureters: No hydronephrosis. No solid mass. No complex renal cystic lesion which requires follow up. Stomach and Bowel: Normal colonic caliber, without significant wall thickening. Peritoneum: No abnormal intraperitoneal fluid. No free air. Ventral Wall: No hernia. Abdominal Nodes: No retroperitoneal or mesenteric adenopathy by size criteria. Vessels: Inferior vena cava is normal in size. PELVIS: Pelvic Organs: Unremarkable. Bladder: Unremarkable. Pelvic Nodes: No enlarged lymph nodes. Miscellaneous: No inguinal hernias are seen. Bones: Unremarkable. IMPRESSION: Unremarkable CT utilizing an angiographic technique of the chest abdomen and pelvis without evidence of pulmonary embolism, aortic dissection, significant atherosclerotic plaque or aneurysm. Approved by: Amor Sanderson M.D. on 09/18/2024 at 11:44 ECG Data Interpretation: EKG show normal sinus rhythm at 75 beats per minute with left bundle keisha block. Negative Sgarbossa criteria. MDM Narrative Medical decision making narrative: 74 years old female came today complaining of chest tightness in the mid chest for the last 2 days and this morning noticed intermittent upper back pain without shortness of breath, fever, cough, wheezing, leg swelling, loss of consciousness, dizziness. Her lungs are clear. Her CV exam, abdominal exam were normal. She has no acute distress in the ED. her EKG showed left bundle-branch block negative Sgarbossa criteria. Her troponin was negative. Her CTA chest abdomen and pelvis showed no acute finding as well as the chest x-ray. Her CBC, PT INR, D-dimer were normal. Her CMP showed sugar of 57 otherwise normal CMP. He was given juice and yogurt in the ED. her troponin was negative. Her proBNP was 141. Her lipase was normal. She was sent home with Flexeril. I asked her to follow up with her PCP within 1-2 weeks. Return to the ED precaution was given. Discharge Plan Departure Patient Disposition: Home Clinical Impression: Chest pain of uncertain etiology, Pain, upper back Instructions: DI for Chest Pain Activity Restrictions/Additional Instructions: Please set up follow up with your primary care doctor in the next 1-2 weeks. Please come back to the emergency room if any worsening symptoms including but not limited to worsening chest pain, fever, nausea vomiting, dizziness, palpitation. Prescriptions: New cyclobenzaprine 5 mg tablet 5 mg PO TID PRN (Reason: muscle spasm) Qty: 15 0RF No Action alendronate 70 mg tablet 70 mg PO QWEEK Qty: 20 0RF cholecalciferol (vitamin D3) 1,000 unit capsule 3,000 unit PO DAILY venlafaxine 37.5 mg capsule,extended release 24hr 37.5 mg PO progesterone micronized 100 mg capsule 100 mg PO BEDTIME Qty: 90 1RF magnesium PO PreserVision AREDS 4,296 mcg-226 mg-90 mg capsule 1 cap PO BID estradiol 0.01 % (0.1 mg/gram) cream 1 g vaginal 2XW Qty: 42.5 0RF methyl B complex PO Referrals: Ann Marie Velasquez DO [Primary Care Provider, Medical] Stand Alone Forms: Patient Portal/API
[2024-09-18] MEDS: ASPIRIN 81 MG CHEW TAB 324 MG PO (11:38)
--- NOTE | 2024-09-18 11:39 | DI.CT.S_ITS ---
PROCEDURE: CT ANGIO CHEST ABDOMEN PELVIS INDICATIONS: Chest pain, upper back pain TECHNIQUE: Precontrast 5 mm thick sections acquired from the lung apices to the iliac crests. After the administration of intravenous contrast, 2.5 mm thick sections again acquired from the lung apices to the iliac crests. Maximum intensity projection (MIP) oblique sagittal and coronal reformats were then acquired. For radiation dose reduction, the following was used: automated exposure control. COMPARISON: None. FINDINGS: Image quality: Diagnostic. AORTA: No aortic aneurysm. No acute aortic syndrome. CHEST: Lower Neck: No enlarged lymph nodes. Thyroid: No thyroid nodules which require sonographic evaluation. Axillae: No enlarged lymph nodes. Chest Wall: Unremarkable. Lungs and Pleura: No pneumothorax or pleural effusions. No consolidation or suspicious nodules. biapical scarring Heart: Heart size is normal. No pericardial effusion. Thoracic Vessels: Pulmonary arteries demonstrate normal size. Mediastinum and Michelle: No enlarged lymph nodes. Esophagus: No wall thickening. No hiatal hernia. ABDOMEN: Liver: No solid mass. Gallbladder: No radiopaque gallstones or wall thickening. Biliary ducts: No biliary dilation. Pancreas: No ductal dilation. Spleen: Size is within normal limits. Adrenal Glands: No adrenal nodules. Kidneys and Ureters: No hydronephrosis. No solid mass. No complex renal cystic lesion which requires follow up. Stomach and Bowel: Normal colonic caliber, without significant wall thickening. Peritoneum: No abnormal intraperitoneal fluid. No free air. Ventral Wall: No hernia. Abdominal Nodes: No retroperitoneal or mesenteric adenopathy by size criteria. Vessels: Inferior vena cava is normal in size. PELVIS: Pelvic Organs: Unremarkable. Bladder: Unremarkable. Pelvic Nodes: No enlarged lymph nodes. Miscellaneous: No inguinal hernias are seen. Bones: Unremarkable. IMPRESSION: Unremarkable CT utilizing an angiographic technique of the chest abdomen and pelvis without evidence of pulmonary embolism, aortic dissection, significant atherosclerotic plaque or aneurysm. Approved by: Amor Sanderson M.D. on 09/18/2024 at 11:44
--- NOTE | 2024-09-18 13:18 | PC.NURSE ---
patient states she has had chest tightness for about 3 days but this morning woke with intermittent pain across mid upper back.
--- NOTE | 2024-09-18 13:21 | PC.NURSE ---
blood sugar 158 at 1320
== END 2024-09-18 13:21 | disposition home or self-care (01) ==
PROVIDERS: Emergency Provider Emergency Medicine; PCP Family Medicine
DX: R07.9 Chest pain, unspecified (principal); M54.6 Pain in thoracic spine
CPT/HCPCS: 36415; 71045; 71275; 74174; 80053; 82550; 82962; 83690; 83735; 83880; 84484; 85025; 85379; 85610; 85730; 93005; 93010; 99284; Q9967

== ENCOUNTER → 2025-02-14 11:36 | Outpatient (CLI) | payer MEDICARE, OTHER, SELFPAY ==
--- NOTE | 2025-02-14 11:37 | DI.RAD.S_ITS ---
PROCEDURE: XR DEXA AXIAL SKELETON INDICATIONS: Osteoprosis COMPARISON: None. FINDINGS: Lumbar Spine: Bone mineral density 0.832 g/cm2, T score -2.0, prior T-score of- 1.2. Left Femoral Neck: Bone mineral density 0.606 g/cm2, T score -2.2. Left Hip: Bone mineral density 0.740 g/cm2, T score -1.7, prior T-score of -2.0. Fracture Risk Calculation (when applicable): 10-year fracture risk of a major osteoporotic fracture 14 percent and of a hip fracture 3.4 percent. (T score greater or equal to -1.0 to: NORMAL) (T score from -1.1 to -2.4: OSTEOPENIA) (T score less than or equal to -2.5: OSTEOPOROSIS) IMPRESSION: Osteopenia, with increased risk of left hip fracture at 3.4%. This may meet criteria for medication therapy. Comparison cannot be made to the prior exam due to differences in technique, however the prior T-scores are reported. Follow-up guidelines as follows: Osteoporosis: Consider a repeat DEXA and Vertebral Fracture Assessment (VFA) exam in 2 years or sooner if medically necessary, to reassess this patient's status. Osteopenia: Consider a repeat DEXA in 2-3 years to reassess this patient's status, or if there is a new clinical indication. Normal: Consider a repeat DEXA in 5 years or sooner, or if there is a new clinical indication. All treatment decisions require clinical judgment and consideration of individual patient factors, including patient preferences, comorbidities, previous drug use, risk factors not captured in the FRAX model (e.g., frailty, falls, vitamin D deficiency, increased bone turnover, interval significant decline in bone density ) and possible under- or over-estimation of fracture risk by FRAX. In addition, the NOF Guide recommends that FDA-approved medical therapies be considered in postmenopausal women and men age >= 50 years with a: * Hip or vertebral (clinical or morphometric) fracture * T-score of <=-2.5 at the spine or hip * Ten-year fracture probability by FRAX of >= 3% for hip fracture or >=20% for major osteoporotic fracture. Dictated by: Lizandro Hernandez M.D. on 02/14/2025 at 17:36 Approved by: Lizandro Hernandez M.D. on 02/14/2025 at 17:38
== END ==
LOC: RAD 11:36
PROVIDERS: PCP Family Medicine; Referring Provider Family Medicine; Visit Provider Family Medicine
DX: M85.89 Other specified disorders of bone density and structure, multiple sites (principal)
CPT/HCPCS: 77080